=== PATIENT | female | born 1950 | race Caucasian/White ===

== ENCOUNTER 2022-04-15 10:17 | Outpatient (CLI) | payer MEDICARE, BC, SELFPAY ==
--- NOTE | 2022-04-15 10:45 | CRLHL7_ITS ---
For Patients: As a result of the Century Cures Act, medical imaging exams and procedure reports are released immediately into your electronic medical record. You may view this report before your referring provider. If you have questions, please contact your health care provider. BILATERAL MAMMOGRAM WITH COMPUTER-AIDED DETECTION TECHNIQUE: CC and MLO views were obtained. These mammographic images have been obtained using full-field digital technique. These mammographic images were interpreted with the benefit of computer-aided detection. COMPARISON FILM: 03/17/2017, 03/14/2016, 03/05/2015. FINDINGS: The breasts are heterogeneously dense, which may obscure small masses IMPRESSION: There is no radiographic evidence for malignancy. ASSESSMENT: BI-RADS Category 1: Negative RECOMMENDATION: Routine screening mammogram in 1 year. A lay language report of this examination will be provided to the patient. Calvin Montesinos M.D. Diagnostic Radiologist [email or web address] CARMINA/Dictated by: Calvin Montesinos MD @ 04/15/2022 11:05:00 AM (Electronically Signed)
== END 2022-04-15 10:18 | disposition home or self-care (01) ==
LOC: MAMMO 10:21
PROVIDERS: Visit Provider Emergency Medicine
DX: Z12.31 Encounter for screening mammogram for malignant neoplasm of breast (principal)
CPT/HCPCS: 77063; 77067

== ENCOUNTER 2023-03-26 12:56 | Outpatient (CLI) | payer MEDICARE, BC, SELFPAY | END 2023-03-26 12:57 | disposition home or self-care (01) | LOC: LKVREF 12:58 | PROVIDERS: Visit Provider Family Medicine | DX: M79.672 Pain in left foot (principal); M79.673 Pain in unspecified foot | CPT/HCPCS: 84550 ==

== ENCOUNTER 2023-04-08 14:26 | Outpatient (CLI) | payer MEDICARE, BC, SELFPAY ==
--- NOTE | 2023-04-08 15:00 | CRLHL7_ITS ---
For Patients: As a result of the Century Cures Act, medical imaging exams and procedure reports are released immediately into your electronic medical record. You may view this report before your referring provider. If you have questions, please contact your health care provider. DXA BONE MINERAL DENSITY STUDY Current height (in): 64.0. Weight (lb): 142.0. Menopause age: 46. Ethnicity: White. 1. Have you had a previous hip or vertebral fracture? No. 2. Have you had any fractures during your adult life which did not result from significant trauma (e.g., auto accident)? Yes. 3. Did either of your parents have a hip fracture? No. 4. Do you smoke? No. 5. Have you ever taken Glucocorticoids? No. 6. Do you have rheumatoid arthritis? No. 7. Do you have secondary osteoporosis? No. 8. Do you drink 3 or more alcoholic drinks per day? No. 9. Are you being treated for osteoporosis? No. 10. Have you ever taken any of the following medications: Actonel, Evista, Fosamax, Miacalcin, Reclast, Boniva, Forteo, HRT (i.e. estrogen/hormone therapy), Protelos, Prolia, Vitamin D, Calcium, other ??? please specify. ANSWER: Yes, Fosamax, calcium. 11. Do you have any of the following medical conditions: Anorexia or bulimia, asthma or emphysema, end stage renal disease, hyperparathyroidism, any seizure disorders, cancer, inflammatory bowel diseases, hysterectomy, other ??? please specify. ANSWER: Yes, cancer. 12. What was your maximum height (inches)? 64. 13. Do you perform weight bearing exercise regularly? Yes. 14. Do you regularly consume dairy products? Yes. 15. Do you drink caffeinated beverages? Yes. 16. At what age did your period start? 15. 17. Are you premenopausal? No. 18. How many full term pregnancies have you had? 2. 19. Have you ever missed your period for more than 6 months in a row (not including or menopause)? No. TECHNIQUE: Bone mineral density study was performed using the [employer]. FINDINGS: The results of the study expressed as bone mineral density (BMD) are as follows: Lumbar spine L1to L4: BMD: 1.254 g/cm2. T-score: 1.9. Z-score: 4.1. Neck Left: BMD: 0.816 g/cm2. T-score: -0.3. Z-score: 1.6. Right: BMD: 0.764 g/cm2. T-score: -0.8. Z-score: 1.1. Total Left: BMD: 0.958 g/cm2. T-score: 0.1. Z-score: 1.7. Right: BMD: 0.894 g/cm2. T-score: -0.4. Z-score: 1.2. Radius Left 33%: BMD: 0.573 g/cm2. T-score: -2.0. Z-score: 0.2. IMPRESSION: Normal bone density. *Comparison exams done prior to 03/2020 were performed on different unit, [employer]. COMPARISON: Compared with scan of 12/17/2017, the bone mineral density has decreased by 4.3 percent at the spine and increased by 6.0 percent at the hip. Compared with scan of 08/17/2014, the bone mineral density has increased by 7.2 percent at the spine and increased by 1.7 percent at the hip. Calvin Montesinos M.D. Diagnostic Radiologist [email or web address] SOO/gbarielle / be/Dictated by: Calvin Montesinos MD @ 04/08/2023 3:34:00 PM (Electronically Signed)
== END 2023-04-08 14:27 | disposition home or self-care (01) ==
LOC: RAD 14:27
PROVIDERS: PCP Emergency Medicine; Visit Provider Emergency Medicine
DX: M81.0 Age-related osteoporosis without current pathological fracture (principal)
CPT/HCPCS: 77080

== ENCOUNTER 2023-04-13 21:56 | Outpatient (REF) | payer MEDICARE, BC, SELFPAY ==
[2023-04-13 22:49] LABS: Aspartate Amino Transferase* 31 U/L (12-35); Creatinine* 0.7 mg/dL (0.5-1.5); Estimated Glomerular Filt Rate 92 ml/min
[2023-04-13 23:14] LABS: Basophils Absolute Auto 0.04 K/uL (0.00-0.30); Basophils Percent Auto 0.5 % (0.0-3.0); Eosinophils Absolute Auto 0.26 K/uL (0.00-0.50); Eosinophils Percent Auto 3.1 % (0.0-7.0); Hematocrit 40.1 % (33.0-51.0); Immature Granulocytes Abs Auto 0.11 K/uL (0.00-0.30); Immature Granulocytes Pct Auto 1.3 %; Lymphocytes Absolute Auto 1.79 K/uL (0.90-2.90); Lymphocytes Percent Auto 21.3 % (20-44); Mean Corpuscular HGB Conc 32 gm/dL (32-36); Mean Corpuscular Hemoglobin 30 pg (26-34); Mean Corpuscular Volume 94 fL (80-100); Monocytes Percent Auto 10.6 % (0.0-11.0); Neutrophils Percent Auto 63.2 % (42.0-72.0); Platelet Count* 201 K/uL (140-440); RDW Coefficient of Variation % 13.4 % (11.5-15.5); Red Blood Count 4.28 m/uL (4.00-5.20); White Blood Count* 8.39 K/uL (4.50-11.00)
[2023-04-13 23:49] LABS: Slide Review Reflex Yes
[2023-04-14 03:52] LABS: Slide Review Acceptable Review (Acceptable)
== END 2023-04-13 21:57 | disposition home or self-care (01) ==
LOC: NPINS 21:56
PROVIDERS: PCP Emergency Medicine; Visit Provider Physician Assistant
DX: M06.9 Rheumatoid arthritis, unspecified (principal)
CPT/HCPCS: 82565; 84450; 85025

== ENCOUNTER 2023-08-10 22:22 | Outpatient (REF) | payer MEDICARE, BC, SELFPAY ==
[2023-08-10 23:39] LABS: Basophils Percent Auto 0.9 % (0.0-3.0); Eosinophils Absolute Auto 0.28 K/uL (0.00-0.50); Eosinophils Percent Auto 2.6 % (0.0-7.0); Hematocrit 42.6 % (33.0-51.0); Hemoglobin* 13.9 gm/dL (12.0-16.0); Immature Granulocytes Abs Auto 0.05 K/uL (0.00-0.30); Immature Granulocytes Pct Auto 0.5 %; Lymphocytes Percent Auto 15.2 % (20-44); Mean Corpuscular HGB Conc 33 gm/dL (32-36); Mean Corpuscular Hemoglobin 31 pg (26-34); Mean Corpuscular Volume 95 fL (80-100); Monocytes Percent Auto 9.3 % (0.0-11.0); Neutrophils Percent Auto 71.5 % (42.0-72.0); Platelet Count* 202 K/uL (140-440); Red Blood Count 4.49 m/uL (4.00-5.20)
[2023-08-10 23:42] LABS: Aspartate Amino Transferase* 31 U/L (12-35); Creatinine* 0.7 mg/dL (0.5-1.5); Estimated Glomerular Filt Rate 92 ml/min; Slide Review Reflex No
== END 2023-08-10 22:23 | disposition home or self-care (01) ==
LOC: NPINS 22:22
PROVIDERS: PCP Emergency Medicine; Visit Provider Physician Assistant
DX: M06.9 Rheumatoid arthritis, unspecified (principal)
CPT/HCPCS: 82565; 84450; 85025

== ENCOUNTER 2024-06-07 13:36 | Outpatient (REF) | payer MEDICARE, BC, SELFPAY ==
[2024-06-07 14:12] LABS: Basophils Absolute Auto 0.04 K/uL (0.00-0.30); Basophils Percent Auto 0.4 % (0.0-3.0); Creatinine* 0.6 mg/dL (0.5-1.5); Eosinophils Absolute Auto 0.02 K/uL (0.00-0.50); Eosinophils Percent Auto 0.2 % (0.0-7.0); Estimated Glomerular Filt Rate 95 ml/min; Hematocrit 40.6 % (33.0-51.0); Hemoglobin* 13.2 gm/dL (12.0-16.0); Immature Granulocytes Abs Auto 0.04 K/uL (0.00-0.30); Immature Granulocytes Pct Auto 0.4 %; Lymphocytes Percent Auto 15.6 % (20-44); Mean Corpuscular HGB Conc 33 gm/dL (32-36); Mean Corpuscular Hemoglobin 31 pg (26-34); Mean Corpuscular Volume 95 fL (80-100); Monocytes Percent Auto 7.8 % (0.0-11.0); Neutrophils Percent Auto 75.6 % (42.0-72.0); Platelet Count* 180 K/uL (140-440); RDW Coefficient of Variation % 13.1 % (11.5-15.5); Red Blood Count 4.26 m/uL (4.00-5.20); White Blood Count* 10.39 K/uL (4.50-11.00)
[2024-06-07 14:13] LABS: Alanine Aminotransferase* 43 U/L (4-35); Aspartate Amino Transferase* 33 U/L (12-35)
[2024-06-07 14:26] LABS: Slide Review Reflex No
== END 2024-06-07 13:37 | disposition home or self-care (01) ==
LOC: NPINS 13:36
PROVIDERS: PCP Emergency Medicine; Visit Provider Nurse Practitioner
DX: M06.9 Rheumatoid arthritis, unspecified (principal)
CPT/HCPCS: 82565; 84450; 84460; 85025

== ENCOUNTER 2024-10-01 02:00 | Emergency (ER) | payer MEDICARE, BC, SELFPAY ==
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
[2024-10-01 02:16] VITALS: BP 169/88; PULSE 93; RESP 22; TEMP 37.7; O2SAT 92; BMI 24.9
--- NOTE | 2024-10-01 02:34 | CRLHL7_ITS ---
For Patients: As a result of the Century Cures Act, medical imaging exams and procedure reports are released immediately into your electronic medical record. You may view this report before your referring provider. If you have questions, please contact your health care provider. Indication: Cough Technique: Two views of the chest Comparison: Chest radiograph and CT performed 01/20/2017 Findings/Impression: Mild cardiomegaly with prominent interstitial markings suspicious for volume overload. Question new nodular opacities in the left lung base. Nonemergent outpatient chest CT recommended for further characterization. Dictated by Rambo Panda MD @ 10/01/2024 3:13:20 AM (Electronically Signed)
--- NOTE | 2024-10-01 02:40 | ED.GENADULT ---
HPI - General Adult General Chief complaint: Fever Stated complaint: bad cold, cough, fever Time Seen by Provider: 10/01/24 02:23 Source: patient and family Mode of arrival: ambulatory Limitations: no limitations History of Present Illness HPI narrative: 74-year-old female presents to a busy ED for cough in the wee hours. Cough constant, non productive. No severe shortness of breath, no chest pain. Low-grade fever. Recently traveled by car back from [place] with family that were ill with similar symptoms. Has not tried any treatments to help with symptoms. No vomiting, no loss of consciousness, no history of DVT or PE per her report. Is anticoagulated on Eliquis due to AFib. Past medical history notable for rheumatoid arthritis, on methotrexate, AFib. Meds reviewed do seem accurate as listed. ROS is notable for the respiratory symptoms as above only, otherwise denies times 12 systems. Nonsmoker. Related Data Home Medications ?Medication ?Instructions ?Recorded ?Confirmed antiarthritic combination no.2 900 See Rx Instructions PO .COMPLEX 05/29/22 10/01/24 mg tablet (glucosamine-chondroitin) ascorbate calcium (vitamin C) 500 1 g PO Q6H 05/29/22 10/01/24 mg tablet calcium carbonate 260 mg PO ONCE 05/29/22 10/01/24 folic acid 1 mg tablet 1 mg PO QDAY 05/29/22 10/01/24 methotrexate sodium 2.5 mg tablet 2.5 mg PO QWEEK 05/29/22 10/01/24 multivitamin 1 tab PO QAM 05/29/22 10/01/24 omega-3 fatty acids 1,000 mg 1,000 mg PO QDAY 05/29/22 10/01/24 capsule prednisone 1 mg tablet 4 mg PO QDAY 07/14/24 10/01/24 Previous Rx's ?Medication ?Instructions ?Recorded apixaban 5 mg tablet 5 mg PO BID #180 tabs 02/02/24 carvedilol 25 mg tablet 25 mg PO BID #180 tabs 05/25/24 amitriptyline 25 mg tablet 25 mg PO QHS #90 tabs 08/16/24 rosuvastatin 20 mg tablet 20 mg PO QDAY #90 tabs 08/16/24 albuterol sulfate 90 mcg/actuation 2 inh inhalation Q4-6H PRN #1 ea 10/01/24 breath activated powder inhaler azithromycin 250 mg tablet See Rx Instructions PO .COMPLEX #6 10/01/24 tabs inhalational spacing device (Kvng #1 ea 10/01/24 Aerosol Hickman Enhancer spacer) prednisone 20 mg tablet 20 mg PO DAILY 3 days #3 tabs 10/01/24 Allergies Allergy/AdvReac Type Severity Reaction Status Date / Time aspirin AdvReac Abdominal Verified 09/22/24 14:04 Pain PFSH PFSH Medical History Stress fx femoral neck ?M84.353A - Stress fracture, unspecified femur, initial encounter for fracture (ICD-10) Metatarsal stress fracture of left foot ?M84.375A - Stress fracture, left foot, initial encounter for fracture (ICD-10) History of stroke (2005) ?Z86.73 - Personal history of transient ischemic attack (TIA), and cerebral infarction without residual deficits (ICD-10) History of CT scan of chest ?Z92.89 - Personal history of other medical treatment (ICD-10) Foot pain, left ?M79.672 - Pain in left foot (ICD-10) Foot pain ?M79.673 - Pain in unspecified foot (ICD-10) Surgical History History of lumbar discectomy (1996) ?Z98.890 - Other specified postprocedural states (ICD-10) History of lobectomy of lung (2013) ?Z90.2 - Acquired absence of lung [part of] (ICD-10) History of arthroscopy of both shoulders (2002) ?Z98.890 - Other specified postprocedural states (ICD-10) Family History Father Asthma Rheumatoid arteritis Mother CHF (congestive heart failure) Diabetes Stroke, Onset Age: 70 Social History Narrative: 2007, 2 adults sons, Works at [employer] Non-smoker quit 2013 , 35 pack years Rarely consumes alcohol 1-2 month Exercises regularly walks 35-40 min x3/ week Smoking Status: Former smoker Do you use any of these nicotine containing products: None Second hand tobacco smoke exposure: No How often do you have a drink containing alcohol: never AUDIT-C Alcohol total score: 0 Non-prescribed substance use: denies use service: No Exam Const: Vital Signs, click to edit/add: Vital Signs - 24 hr 10/01/24 02:16 Temperature 99.9 F H Pulse Rate [Left P ulse Oximeter] 93 Respiratory Rate 22 Blood Pressure [Ri ght Upper Arm] 169/88 H Pulse Oximetry 92 Oxygen Delivery Me thod Room Air Documenting provider has reviewed patient's vital signs: yes Common normals: no apparent distress Other: Mild memory impairment, reports chronic. Able to answer medical questions appropriately. Appears well nourished and well hydrated. HENMT: Common normals: normocephalic, moist oral mucous membranes and oropharynx normal Head and scalp: normocephalic Other: Mild clear mucus rhinorrhea. Eye: Common normals: conjunctivae normal General eye: normal appearance of both eyes Conjunctiva: conjunctiva(e) normal Neck & C-Spine: Common normals: full ROM and no lymphadenopathy Resp: Common normals: normal respiratory effort and no use of accessory muscles Effort & inspection: able to speak in complete sentences Other: Faint expiratory wheeze left midlung echeverria. Cardio: Common normals: regular rate, regular rhythm, S1 normal heart sound, S2 normal heart sound and no murmurs Rate: regular rate Rhythm: regular rhythm Heart sounds: S1 normal and S2 normal Extremity: Common normals: normal capillary refill and no pedal edema Psych: Attitude: calm Activity/motor behavior: appropriate eye contact Insight: fair Judgement: fair Skin: Common normals: no rashes or lesions noted General skin exam: no rashes or lesions noted Course Course ED Course: 74-year-old female who immune compromise presenting with cough, low-grade fever. Differential diagnosis including most likely viral illness that she acquired from family on this recent trip, cannot exclude pneumonia, pertussis, heart failure, multiple viral illness these, amongst others. Will collect viral swabs, administer DuoNeb, chest x-ray. Await findings. Reevaluation(s) Time of Reevaluation #1: 03:31 Reevaluation #1: Counseled patient on chest x-ray and lab findings. Negative viral swabs, chest x-ray reassuring. Suspect bronchitis. She is immunocompromised due to her rheumatoid arthritis and use of methotrexate. Because of this, will treat with azithromycin and prednisone. She did have some improvement with the DuoNeb and is now coughing up some mucus. Will also prescribe albuterol to use p.r.n.. Counseled that the pills that are prescribed will start tomorrow. The once that she was given in the ED will count as her Thursday morning dose. 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 They asked about sleep aids, I do not think this is a very good idea. She may use [id number] Benadryl and or melatonin to help with sleep as needed. Indications for ED referral were reviewed, written instructions provided. Primary care follow-up if not improving in 1 weeks time. Vital Signs Vital signs: Initial Vital Signs Temperature 99.9 F H 10/01/24 02:16 Temperature Source Temporal Artery Scan 10/01/24 02:16 Pulse Rate 93 10/01/24 02:16 Respiratory Rate 22 10/01/24 02:16 Blood Pressure 169/88 H 10/01/24 02:16 Blood Pressure Mean 115 H 10/01/24 02:16 Blood Pressure Position High-Fowlers 10/01/24 02:16 Pulse Oximetry 92 10/01/24 02:16 Oxygen Delivery Method Room Air 10/01/24 02:16 Vital Signs Temperature 99.9 F H 10/01/24 02:16 Pulse Rate 93 10/01/24 02:16 Respiratory Rate 22 10/01/24 02:16 Blood Pressure 169/88 H 10/01/24 02:16 Pulse Oximetry 92 10/01/24 02:16 Oxygen Delivery Method Room Air 10/01/24 02:16 Temperature 99.9 F H 10/01/24 02:16 Pulse Rate 93 10/01/24 02:16 Respiratory Rate 22 10/01/24 02:16 Blood Pressure 169/88 H 10/01/24 02:16 Pulse Oximetry 92 10/01/24 02:16 Oxygen Delivery Method Room Air 10/01/24 02:16 Medications Administered Medications: Generic Name Dose Route Start Last Admin Trade Name Freq PRN Reason Stop Dose Admin Albuterol/Ipratropium 1 neb 10/01/24 02:34 10/01/24 02:49 Iprat-Albut 0.5-2.5 Mg/3 Ml Neb IH 10/01/24 02:35 1 neb ONCE ONE Administration Medical Decision Making Lab Data Lab results reviewed: Yes I reviewed the patient's lab results Labs: Lab Results 10/01/24 10/01/24 Range/Units 02:12 02:24 SARS-CoV-2 (PCR) Negative SARS-CoV-2 (Negative) Influenza Type A (PCR) Negative PCR FLU A (Negative) Influenza Type B (PCR) Negative PCR FLU B (Negative) Lab Acknowledgement Test Added Imaging Data Chest x-ray: Attestation: I have reviewed the pertinent imaging results. My impression: Normal chest x-ray Radiologist's impression: Findings/Impression: Mild cardiomegaly with prominent interstitial markings suspicious for volume overload. Question new nodular opacities in the left lung base. Nonemergent outpatient chest CT recommended for further characterization. Dictated by Rambo Panda MD @ 10/01/2024 3:13:20 AM Discharge Plan Discharge Clinical Impression: Bronchitis Patient Disposition: Home w/ Parent or Adult Condition: Stable Instructions: Acute Bronchitis (ED) Additional Instructions: As we discussed, your swabs were negative for COVID, influenza. We will send out testing for pertussis. The antibiotic that your prescribed would cover for this anyway. Most likely, this is a viral bronchitis but because you are immunocompromised, you are at higher risk of complications. The breathing treatment that I gave you will help you cough up some of this cried. There are no signs of low oxygen, severe pneumonia or any emergent condition today. The antibiotic and prednisone that you have already had in the ED will count as your Thursday dose. 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 Take these as prescribed. He will have 3 more days of prednisone and 5 more days of antibiotic. It is normal to cough for a couple of weeks after you have finished the antibiotics. You may continue using the inhaler to help with this in the meantime. If things are not starting to improve in a week, I recommend primary care follow-up. You should come to the emergency department if you have severe shortness of breath, significant chest pain and or other signs of severe complication. It is okay to use [id number] Benadryl and or melatonin to help with sleep. Activity Level: Activity as Tolerated Discharge Diet: Regular Prescriptions: New azithromycin 250 mg tablet See Rx Instructions .ROUTE .COMPLEX Qty: 6 0RF Rx Instructions: For 250 mg dose pack: take 500 mg today (day 1), then 250 mg for 4 days (days 2-5) prednisone 20 mg tablet 20 mg PO DAILY 3 Days Qty: 3 0RF albuterol sulfate 90 mcg/actuation aerosol powdr breath activated 2 inh inhalation Q4-6H PRNQty: 1 1RF (DME) Kvng Aerosol Hickman Enhancer Spacer See Rx Instructions .Route Qty: 1 0RF Rx Instructions: As directed No Action prednisone 1 mg tablet 4 mg PO QDAY methotrexate sodium 2.5 mg tablet 2.5 mg PO QWEEK folic acid 1 mg tablet 1 mg PO QDAY multivitamin Tablet 1 tab PO QAM omega-3 fatty acids 1,000 mg capsule 1,000 mg PO QDAY calcium carbonate 260 mg calcium (648 mg) tablet 260 mg PO ONCE glucosamine-chondroitin 900 mg tablet See Rx Instructions PO .COMPLEX Rx Instructions: take as prescribed orally; ascorbate calcium (vitamin C) 500 mg tablet 1 g PO Q6H apixaban 5 mg tablet 5 mg PO BID Qty: 180 2RF carvedilol 25 mg tablet 25 mg PO BID Qty: 180 3RF Rx Instructions: must administer with a meal/food rosuvastatin 20 mg tablet 20 mg PO QDAY Qty: 90 3RF amitriptyline 25 mg tablet 25 mg PO QHS Qty: 90 3RF Follow Up/Referrals: Malini Campos MISSILEMAN [Primary Care Provider] - Stand Alone Forms: MyHealth Info Instructions
[2024-10-01] MEDS: IPRAT-ALBUT 0.5-2.5 MG/3 ML NEB 1 NEB IH (02:49)
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
[2024-10-01 03:11] LABS: PCR FLU A Negative PCR FLU A (Negative); PCR FLU B Negative PCR FLU B (Negative); SARS PCR* Negative SARS-CoV-2 (Negative)
[2024-10-01] MEDS: predniSONE 10 MG TABLET 20 MG PO (03:37)
[2024-10-01] MEDS: AZITHROMYCIN 250 MG TABLET 500 MG PO (03:37)
[2024-10-04 06:39] LABS: B. pertussis/parapertus Source Not Provided; Bordetella parapertussis PCR Not Detected; Bordetella pertussis by PCR Not Detected
== END 2024-10-01 03:47 | disposition home or self-care (01) ==
PROVIDERS: Emergency Provider Family Medicine; PCP Nurse Practitioner Family
DX: J40 Bronchitis, not specified as acute or chronic (principal)
CPT/HCPCS: 36415; 71046; 87631; 99284; A9270; J7512

== ENCOUNTER 2024-10-06 12:57 | Outpatient (CLI) | payer MEDICARE, BC, SELFPAY ==
--- OUTSIDE RECORDS SUMMARY | 2024-09-29 12:14 | XMS_ITS | Continuity of Care Document ---
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 Keep all follow-up visits as told by your health care provider. This includes visits for any further testing if your chest pain does not go away. This information is not intended to replace advice given to you by your health care provider. Make sure you discuss any questions you have with your health care provider. Document Revised: 12/05/2021 Document Reviewed: 12/05/2021 [employer] Patient Education 2022 [employer] Valuables and Belongings Clothes at Bedside: Pants, Shirt, Shoes Electronics at Bedside: None Jewelry at Bedside: None Miscellaneous Items at Bedside: None Personal Devices at Bedside: None I understand that [facility] is not responsible for any personal belongings/effects or valuables that have not been identified on the valuables and belongings list. Any personal effects brought into the facility and not recorded on the valuables and belongings form are the responsibility of the patient/family/significant other. I have received the indicated patient education materials/instructions and medication list and have verbalized understanding. Patient Name: BRIDNA COLLINS Patient/Responsible Adult Signature: Date/Time: ____ Provider Signature: ____ Date/Time: ____ 12/09/2023 [facility] Physician Emergency department Note Patient: BRINDA COLLINS Age: 73 years Sex: F : 1950 Active Insurance: Admitting MD: Location: [facility] ED: ED05: 01 PCP: PCP, Unknown Author: Claudio Bach PA-C Date/Time Admit Date: 12/08/23 13:48 Provider Contact Time: 12/08/2023 13:56 Mode of Arrival Mode of Arrival: Wheelchair Chief Complaint Chief Complaint ED:Pt arrived POV from home c/o of chest pressure for approx 1hr resolved now 12/08/23 13:50 No results found. History of Present Illness This is a 73-year-old female presents for evaluation withanterior chest painthat followed her bra linethat started a few hours agoand only lasted about an hour. Patient reports she was making cookies at the time, and attempted to ignore it, butshe was concernedafter googling it, andwanted toget it checked out. Patient reports a history ofpericarditis in the past, and a history of paroxysmal atrial fibrillation, on Eliquis. Patient has never experienced any heart attack in the past. Patient has a history of RA and she attributes most of her musculoskeletal painto her RA. Patient denies any shortness of breath,anylightheadedness, or dizziness, and currently isasymptomatic. Health Status Status N/A Physical Exam First Vitals Signs Blood Pressure: 133 / 96(12/08/23 13:50) Heart Rate: 63(12/08/23 13:50) Respiratory Rate: 18(12/08/23 13:50) SPO2: 97%(12/08/23 13:50) Oxygen Method: Room air(12/08/23 13:50) Temperature Temporal Artery 36.7(12/08/23 13:50) General: Alert. Skin: Warm, dry. Head: Normocephalic. Neck: normal in appearance. Eye: Pupils are equal, round and reactive to light. Ears, nose, mouth and throat: Oral mucosa moist. Cardiovascular: Regular rate and rhythm, No murmur. No pretibial pitting edema Respiratory: Lungs are clear to auscultation, respirations are non-labored, breath sounds are equal. Chest wall:Non-tender to palpation Musculoskeletal: Moves all extremities. Most Recent Vitals T:36.7 C (Temporal Artery) HR:63 RR:18 BP:133/96 SpO2:97% Oxygen Method:Room air WT:140lbs WT:63.492kg Emergency Department Orders Laboratory and Blood: CBC w/Diff* (man diff if indicated) (CBC w/Diff* (man diff if indicated)) Troponin-I (Troponin-I) D-Dimer Quantitative (D-Dimer Quantitative) Comprehensive Metabolic Panel (CMP (BMP + ALB, Tot Prot, Bili, CA, Alk Phos, ALT, AST)) TSH w/FT4 Reflex (TSH w/FT4 Reflex) Radiology: XR Chest 1 View Portable (Chest XR Port 1 View) Diagnostic Tests: Electrocardiogram (EKG) Laboratory Results ED Labs (last two resulted values within 24 hours) Hematology WBC: 8.8 Hemoglobin: 13.8 Hematocrit: 40.6 Platelets: 192 Neutrophils: 74.9 MCV: 92.5 Lymph%: 13.6 Chemistry Sodium: 142 Potassium: 4.1 Chloride: 105 CO2: 26 Anion Gap: 11 Glucose: 180 (H) BUN: 14 Creatinine: 0.80 Calcium: 9.7 Total Bilirubin: 1.1 ALT: 31 AST: 23 Alk Phos: 73 TSH: 1.62 Cardiac Troponin I: <0.01 Coagulation D-Dimer, Quant: 5.50 (H) Diagnostic Results/Interpretation Radiology Result Date: 12/08/23 17:05 Verified By: Ramírez Johnston MD at 12/08/23 17:38 Report : CT Angio Chest PE Study IMPRESSION: 1. Negative for pulmonary embolism. 2. Cardiomegaly. 3. Coronary arterial calcifications. 4. Atherosclerosis thoracic aorta. 5. Chronic biapical scarring with previous pulmonary surgery to be correlated with surgical history. 6. Probable bronchocele in the left lower lobe. Incidental sub cm pulmonary nodules versus focal bronchial opacification right upper lobe. For patients at low risk (minimal or absent history of smoking and of other known risk factors), no routine follow-up is indicated. For patients at high risk (history of smoking or of other known risk factors), consider optional CT Chest at 12 months. (Reference: [place]) REFERENCES: Sarahhoifrah H, et al. Guidelines for Management of Incidental Pulmonary Nodules Detected on CT Images: From the Fleischner Society 2017. Radiology. 2017;284(1):228-243. 12/08/23 16:56 +++++++++++++++++++++++++++++++ ++++++++++++++++++++++++ Result Date: 12/08/23 14:37 Verified By: Filipe Wilkins MD at 12/08/23 14:47 Report : XR Chest 1 View Portable IMPRESSION: No acute cardiopulmonary process detected. 12/08/23 14:26 +++++++++++++++++++++++++++++++ ++++++++++++++++++++++++ Reexamination/Reevaluation 12/08/2023 17:53:28 - I discussed lab and imaging results with patient and plan for discharge home. All questions answered. Medical Decision Making Differential Diagnosis:Musculoskeletal pain, noncardiac chest pain,pulmonary embolism, pneumonia Comorbidities:Paroxysmal atrial fibrillation,TIA Studies Independently Interpreted:Chest x-ray images personally viewed interpreted by myself, no acute infiltrates, no cardiomegaly. CTchest angio images personally viewed and interpreted by myself, no acute pulmonary embolism. EKG:Time: 13: 54 ventricular rate 58 bpmsinus bradycardia with aright bundle branch block, no ST segment changes, T wave inversions or any signs of acute ischemia. Reviewed and interpreted by myself and Dr. Peng. Studies ordered/considered:CBC, CMP, troponin, D-dimer ED course:[facility] wall[facility]inthat came and wentearlier today, symptoms lastedabout an hour. Patient did not experience anylightheadedness, dizziness,or shortness of breath with the pain. Patient has no history of ischemic cardiomyopathy, andhas never experienced a heart attack. Patient had a cardiac workup, including a negativetroponin, her D-dimer was indeterminate, CT angio chest was performed that shows no acute pulmonary emboli or acute infiltrate.Patient has a history of RA, and attributes most of hermusculoskeletal pain to her RA, I suspect the patient's symptomsmay be musculoskeletal in nature, do not suspect cardiaccauses of pain at this time. However, I did let the patient know that [facility] unable to perform acomplete cardiac workup, and recommend close follow-up with cardiology. Patient has a heart score of 3, and I feel she is safe for outpatientmanagement if symptoms get worse or return patient was instructed return to EDfor evaluation. Final Diagnosis Diagnosis this visit: Non-cardiac chest pain (R07.89) 12/08/2023 17:54 Discharge Disposition Discharge Order Details: 12/08/23 17:55:00 [facility], Now, Home or self care Follow-up Follow-Up Details: Provider/Org Name: Rosa Mendez MD Within: 5 to 7 days Address: [address] [place] [address] [address] [facility] [id number]; ; Comments: Cardiology Problem List/Past Medical History Ongoing CVA (cerebral vascular accident) Hyperlipemia RA (rheumatoid arthritis) Historical No qualifying data Allergies NKA Social History Alcohol Current, 11/26/2023 Home/Environment Sikhism restrictions/concerns: None. Living situation: Home/Independent., 11/26/2023 Substance Abuse Denies, 11/26/2023 Tobacco Never (less than 100 in lifetime), 11/26/2023 Home Medications amitriptyline 25 mg oral tablet carvedilol 25 mg oral tablet Eliquis 5 mg oral tablet, 5 mg= 1 Tab, PO, BID folic acid 1 mg oral tablet methotrexate 2.5 mg oral tablet predniSONE 1 mg oral tablet, Take 4 tablets (4 mg total) by mouth daily.* rosuvastatin 20 mg oral tablet, 20 mg= 1 Tab, PO, qDay Electronically Signed By: Claudio Bach PA-C On 12/08/23 18:08 Co Signature By: Luis A Peng MD On 12/09/23 09:33 Modify Signature By: Claudio Bach PA-C On 12/08/23 17:57 12/09/2023 [facility] ED Physician Notes Patient: DM COLLINS Age: 73 years Sex: F : 1950 Active Insurance: MEDICARE A Admitting MD: Location: [facility] ED: ED05: 01 PCP: Author: Luis A Peng MD I have seen the patient with the associated SERGIO and the plan was discussed with me, and have completed my own complaint focused exam in entirety in addition to the detailed SERGIO examination. Vital signs reviewed General appearance: Nontoxic appearing Head: Normocephalic/atraumatic. Respiratory: Normal rate and effort. Equal chest rise bilaterally Cardiovascular: Extremities well-perfused, hemodynamically stable Abdomen: Soft, nontender, nondistended, negative Cabrales sign Musculoskeletal: No deformity. Skin: normal color, no laceration Neurological: Alert and oriented 73-year-old female with history of RA, A-fib on Eliquis, presenting with transient pain across the right lower anterior ribs which resolved prior to arrival. Denies a prior history, no modifying factors during the episode, no pleuritic symptoms. EKG shows a right bundle branch block. She has a benign abdominal exam, no right upper quadrant tenderness. We are performing a cardiac workup, will include D-dimer, chest x-ray See PA note for results, reassessment and final disposition Electronically Signed By: Luis A Peng MD On 12/08/23 15:46 Co Signature By: Modify Signature By: Luis A Peng MD On 12/08/23 15:46 12/08/2023 [facility] ED Physician Notes Patient: DM COLLINS Age: 73 years Sex: F : 1950 Active Insurance: Admitting MD: Location: [facility] ED: ED05: 01 PCP: PCP, Unknown Author: Claudio Bach PA-C Date/Time Admit Date: 12/08/23 13:48 Provider Contact Time: 12/08/2023 13:56 Mode of Arrival Mode of Arrival: Wheelchair Chief Complaint Chief Complaint ED: Pt arrived POV from home c/o of chest pressure for approx 1hr resolved now 12/08/23 13:50 No results found. History of Present Illness This is a 73-year-old female presents for evaluation with anterior chest pain that followed her bra line that started a few hours ago and only lasted about an hour. Patient reports she was making cookies at the time, and attempted to ignore it, but she was concerned after googling it, and wanted to 'get it checked out'. Patient reports a history of pericarditis in the past, and a history of paroxysmal atrial fibrillation, on Eliquis. Patient has never experienced any heart attack in the past. Patient has a history of RA and she attributes most of her musculoskeletal pain to her RA. Patient denies any shortness of breath, any lightheadedness, or dizziness, and currently is asymptomatic. Health Status Status N/A Physical Exam First Vitals Signs Blood Pressure: 133 / 96 (12/08/23 13:50) Heart Rate: 63 (12/08/23 13:50) Respiratory Rate: 18 (12/08/23 13:50) SPO2: 97% (12/08/23 13:50) Oxygen Method: Room air (12/08/23 13:50) Temperature Temporal Artery 36.7 (12/08/23 13:50) General: Alert. Skin: Warm, dry. Head: Normocephalic. Neck: normal in appearance. Eye: Pupils are equal, round and reactive to light. Ears, nose, mouth and throat: Oral mucosa moist. Cardiovascular: Regular rate and rhythm, No murmur. No pretibial pitting edema Respiratory: Lungs are clear to auscultation, respirations are non-labored, breath sounds are equal. Chest wall: Non-tender to palpation Musculoskeletal: Moves all extremities. Most Recent Vitals T: 36.7 C (Temporal Artery) HR: 63 RR: 18 BP: 133/96 SpO2: 97% Oxygen Method: Room air WT: 140 lbs WT: 63.492 kg Emergency Department Orders Laboratory and Blood: CBC w/Diff* (man diff if indicated) (CBC w/Diff* (man diff if indicated)) Troponin-I (Troponin-I) D-Dimer Quantitative (D-Dimer Quantitative) Comprehensive Metabolic Panel (CMP (BMP + ALB, Tot Prot, Bili, CA, Alk Phos, ALT, AST)) TSH w/FT4 Reflex (TSH w/FT4 Reflex) Radiology: XR Chest 1 View Portable (Chest XR Port 1 View) Diagnostic Tests: Electrocardiogram (EKG) Laboratory Results ED Labs (last two resulted values within 24 hours) Hematology WBC: 8.8 Hemoglobin: 13.8 Hematocrit: 40.6 Platelets: 192 Neutrophils: 74.9 MCV: 92.5 Lymph%: 13.6 Chemistry Sodium: 142 Potassium: 4.1 Chloride: 105 CO2: 26 Anion Gap: 11 Glucose: 180 (H) BUN: 14 Creatinine: 0.80 Calcium: 9.7 Total Bilirubin: 1.1 ALT: 31 AST: 23 Alk Phos: 73 TSH: 1.62 Cardiac Troponin I: <0.01 Coagulation D-Dimer, Quant: 5.50 (H) Diagnostic Results/Interpretation Radiology Result Date: 12/08/23 17:05 Verified By: Ramírez Johnston MD at 12/08/23 17:38 Report : CT Angio Chest PE Study IMPRESSION: 1. Negative for pulmonary embolism. 2. Cardiomegaly. 3. Coronary arterial calcifications. 4. Atherosclerosis thoracic aorta. 5. Chronic biapical scarring with previous pulmonary surgery to be correlated with surgical history. 6. Probable bronchocele in the left lower lobe. Incidental sub cm pulmonary nodules versus focal bronchial opacification right upper lobe. For patients at low risk (minimal or absent history of smoking and of other known risk factors), no routine follow-up is indicated. For patients at high risk (history of smoking or of other known risk factors), consider optional CT Chest at 12 months. (Reference: Winston) REFERENCES: [place] Meng, et al. Guidelines for Management of Incidental Pulmonary Nodules Detected on CT Images: From the Fleischner Society 2017. Radiology. 2017;284(1):228-243. 12/08/23 16:56 +++++++++++++++++++++++++++++++ ++++++++++++++++++++++++ Result Date: 12/08/23 14:37 Verified By: Filipe Wilkins MD at 12/08/23 14:47 Report : XR Chest 1 View Portable IMPRESSION: No acute cardiopulmonary process detected. 12/08/23 14:26 +++++++++++++++++++++++++++++++ ++++++++++++++++++++++++ Reexamination/Reevaluation 12/08/2023 17:53:28 - I discussed lab and imaging results with patient and plan for discharge home. All questions answered. Medical Decision Making Differential Diagnosis: Musculoskeletal pain, noncardiac chest pain, pulmonary embolism, pneumonia Comorbidities: Paroxysmal atrial fibrillation, TIA Studies Independently Interpreted: Chest x-ray images personally viewed interpreted by myself, no acute infiltrates, no cardiomegaly. CT chest angio images personally viewed and interpreted by myself, no acute pulmonary embolism. EKG: Time: 13: 54 ventricular rate 58 bpm sinus bradycardia with a right bundle branch block, no ST segment changes, T wave inversions or any signs of acute ischemia. Reviewed and interpreted by myself and Dr. Peng. Studies ordered/considered: CBC, CMP, troponin, D-dimer ED course: Patient presents for evaluation with lower chest wall pain that came and went earlier today, symptoms lasted about an hour. Patient did not experience any lightheadedness, dizziness, or shortness of breath with the pain. Patient has no history of ischemic cardiomyopathy, and has never experienced a heart attack. Patient had a cardiac workup, including a negative troponin, her D-dimer was indeterminate, CT angio chest was performed that shows no acute pulmonary emboli or acute infiltrate. Patient has a history of RA, and attributes most of her musculoskeletal pain to her RA, I suspect the patient's symptoms may be musculoskeletal in nature, do not suspect cardiac causes of pain at this time. However, I did let the patient know that I am unable to perform a complete cardiac workup, and recommend close follow-up with cardiology. Patient has a heart score of 3, and I feel she is safe for outpatient management if symptoms get worse or return patient was instructed return to ED for evaluation. Final Diagnosis Diagnosis this visit: Non-cardiac chest pain (R07.89) 12/08/2023 17:54 Discharge Disposition Discharge Order Details: 12/08/23 17:55:00 [facility], Now, Home or self care Follow-up Follow-Up Details: Provider/Org Name: Rosa Mendez MD Within: 5 to 7 days Address: [address] [place] [address] [address] [facility] [address]; ; Comments: Cardiology Problem List/Past Medical History Ongoing CVA (cerebral vascular accident) Hyperlipemia RA (rheumatoid arthritis) Historical No qualifying data Allergies NKA Social History Alcohol Current, 11/26/2023 Home/Environment Sikhism restrictions/concerns: None. Living situation: Home/Independent., 11/26/2023 Substance Abuse Denies, 11/26/2023 Tobacco Never (less than 100 in lifetime), 11/26/2023 Home Medications amitriptyline 25 mg oral tablet carvedilol 25 mg oral tablet Eliquis 5 mg oral tablet, 5 mg= 1 Tab, PO, BID folic acid 1 mg oral tablet methotrexate 2.5 mg oral tablet predniSONE 1 mg oral tablet, Take 4 tablets (4 mg total) by mouth daily.* rosuvastatin 20 mg oral tablet, 20 mg= 1 Tab, PO, qDay Electronically Signed By: Claudio Bach PA-C On 12/08/23 18:08 Co Signature By: Luis A Peng MD On 12/09/23 09:33 Modify Signature By: Claudio Bach PA-C On 12/08/23 17:57 12/08/2023 [facility] Physician Emergency department Note Patient: BRINDA COLLINS Age: 73 years Sex: F : 1950 Active Insurance: MEDICARE A Admitting MD: Location: [facility] ED: ED05: 01 PCP: Author: Luis A Peng MD I have seen the patient with the associated SERGIO and the plan was discussed with me, and have completed my own complaint focused exam in entirety in addition to the detailed SERGIO examination. Vital signs reviewed General appearance: Nontoxic appearing Head: Normocephalic/atraumatic. Respiratory: Normal rate and effort. Equal chest rise bilaterally Cardiovascular: Extremities well-perfused, hemodynamically stable Abdomen: Soft, nontender, nondistended, negative Cabrales sign Musculoskeletal: No deformity. Skin: normal color, no laceration Neurological: Alert and oriented 73-year-old female with history of RA, A-fib on Eliquis, presenting with transient pain across the right lower anterior ribs which resolved prior to arrival. Denies a prior history, no modifying factors during the episode, no pleuritic symptoms. EKG shows a right bundle branch block. She has a benign abdominal exam, no right upper quadrant tenderness. We are performing a cardiac workup, will include D-dimer, chest x-ray See PA note for results, reassessment and final disposition Electronically Signed By: Luis A Peng MD On 12/08/23 15:46 Co Signature By: Modify Signature By: Luis A Peng MD On 12/08/23 15:46 12/08/2023 [facility] Discharge Instructions Document [address] [address] BRINDA COLLINS :1950 (EV) Visit Date:11/26/2023 [employer]AF[employer]IC[employer] PRESCRIBING We care about you. Our goal is to treat your medical conditions, including pain, effectively, safely and in the right way. Pain relief treatment can be complicated. Mistakes or abuse of pain medicine can cause serious health problems and . Our emergency department will only provide pain relief options that are safe and correct. For your SAFETY, we routinely follow these rules when helping you with your pain. We look for and treat emergencies. We use our best judgement when treating pain. These recommendations follow legal and ethical advice. You should have only ONE provider and ONE pharmacy helping you with pain. We do not usually prescribe pain medication if you already receive pain medicine from another health care provider. If pain prescriptions are needed for pain, we will only give you a limited amount. We do not refill stolen or lost prescriptions for pain medication. We do not prescribe long-acting pain medicines such as: OxyContin, MSContin, Fentanyl (Duragesic), Methadone, Opana ER, Exalgo, and others. We do not provide missed doses of Methadone. We do not usually give shots for flare-ups of chronic pain. Health care laws, including HIPAA, allow us to ask for all of your medical records. These laws allow us to share information with other health providers who are treating you. We may ask you to show a photo ID when you receive a prescription for pain medicines. In [place], we use the [place] Prescription Drug Monitoring Program called [employer]. In [place] and [place], we use the Prescription Monitoring Program that has oversight by the [place] and [facility] boards of pharmacy. These statewide computer systems track opioid pain medications and other controlled substance prescriptions. If you need help with substance abuse or addiction, please call [phone] ([phone] for confidential referral and treatment. Sponsored by: [employer] [facility] [employer] Safe Practice, Safe Care [facility] Emergency Department Patient Discharge Instructions If your symptoms continue or worsen, return to the emergency department or contact your physician. If you have questions about your discharge instructions, call the phone number above. Providers Attending Physician - Scott Lynne MD Lifetime Physician(PCP) - PCP, Unknown Provider Role Yael Lomeli ED Provider Scott Lynne MD ED Provider Reason for Visit Laceration of thumb Discharge Diagnosis Discharge Vitals T: 36.7 C (Tympanic) HR: 68 RR: 18 BP: 150/49 SpO2: 95% Oxygen Method: Room air HT: 162.56 cm WT: 66.6 kg BMI: 25.203 BSA: 1.73 Time patient left the ED 11/26/2023 07:08 pm These instructions are intended to provide general information and guidelines to follow at home to properly care for your particular medical problem. The following diagnostic tests and/or procedures were performed during your stay. Tests Performed Most Recent Lab Results Follow-up Instructions: All referrals for follow up medical care may require approval by your insurance carrier. Any provider contact information (below) is provided to assist you in getting the follow up we recommend. However, it's important that you first check with your insurance provider to assure that the provider is in yourinsurance provider to assure that the provider is in your network and such a visit will be covered. Some plans may require a Primary Care doctor to provide a referral for specialist appointments. You May Need to Schedule the Following Appointments Follow Up with Follow up with primary care provider When Within 1 to 2 days We encourage you to sign up for My Portal, where you can easily access your medical records and test results from all [facility]. Please sign up in one of the following ways: 1. Email invitation. You may have a message in your inbox. Please click the link provided to create an account. OR 2. Request an invitation at your next clinic or hospital visit. Please ask a staff member and they will be happy to assist you. Medications DO NOT STOP TAKING ANY MEDICATIONS WITHOUT CONTACTING YOUR PHYSICIAN Discharge Orders Discharge Orders: Discharge Now, Home or self care Education Materials Skin Tear A skin tear is a wound in which the top layers of skin have peeled off from the deeper skin or tissues underneath. This is a common problem as people get older because the skin becomes thinner and more fragile. In addition, some medicines, such as oral corticosteroids, can lead to thinning skin if they are taken for long periods of time. A skin tear is often repaired with tape or skin adhesive strips. Depending on the location of the wound, a bandage (dressing) may be applied over the tape or adhesive strips. Follow these instructions at home: Wound care Clean the wound as told by your health care provider. You may be instructed to keep the wound dry for the first few days. If you are told to clean the wound: Wash the wound as told by your health care provider. This may include using mild soap and water, a wound cleanser, or a salt w ater (saline) solution. If using soap, rinse the wound with water to remove all soap. Do not rub the wound dry. Pat it gently with a clean towel or let it air-dry. Change any dressings as told by your health care provider. This may include changing the dressing if it gets wet, gets dirty, or starts to smell bad. Wash your hands with soap and water for at least 20 seconds before and after you change your bandage (dressing). If soap and water are not available, use hand manager operations research. Leave tape or skin adhesive strips in place. These skin closures may need to stay in place for 2 weeks or longer. If adhesive strip edges start to loosen and curl up, you may trim the loose edges. Do not remove adhesive strips completely unless your health care provider tells you to do that. Check your wound every day for signs of infection. Check for: Redness, swelling, or pain. More fluid or blood. Warmth. Pus or a bad smell. Do not scratch or pick at the wound. Protect the injured area until it has healed. Medicines Take or apply [id number]-[id number] and prescription medicines only as told by your health care provider. If you were prescribed an antibiotic medicine, take or apply it as told by your health care provider. Do not stop using the antibiotic even if your condition improves. General instructions Keep the dressing dry as told by your health care provider. Do not take baths, swim, use a hot tub, or do anything that puts your wound underwater until your health care provider approves. Ask your health care provider if you may take showers. You may only be allowed to take sponge baths. Keep all follow-up visits. This is important. Contact a health care provider if: You have redness, swelling, or pain around your wound. You have more fluid or blood coming from your wound. Your wound, or the area around your wound, feels warm to the touch. You have pus or a bad smell coming from your wound. Get help right away if: You have a red streak that goes away from the skin tear. You have a fever and chills, and your symptoms suddenly get worse. Summary A skin tear is a wound in which the top layers of skin have peeled off from the deeper skin or tissues underneath. A skin tear is often repaired with tape or skin adhesive strips, and a bandage (dressing) may be applied over the tape or the adhesive strips. Change any dressings as told by your health care provider. Take or apply cdsx-tic-lvmglkv and prescription medicines only as told by your health care provider. Contact a health care provider if you have signs of infection. This information is not intended to replace advice given to you by your health care provider. Make sure you discuss any questions you have with your health care provider. Document Revised: 12/26/2020 Document Reviewed: 12/26/2020 [employer] Patient Education 2022 [employer] Laceration Care, Adult A laceration is a cut that may go through all layers of the skin. The cut may also go into the tissue that is right under the skin. Some cuts heal on their own. Other cuts need to be closed with stitches (sutures), nahid, skin adhesive strips, or skin glue. Taking care of your cut lowers your risk of infection, helps your injury heal better, and may prevent scarring. General tips Keep your wound clean and dry. Do not scratch or pick at your wound. Wash your hands with soap and water for at least 20 seconds before and after touching your wound or changing your bandage (dressing). If you cannot use soap and water, use hand manager operations research. Do not usedisinfectants or antiseptics, such as rubbing alcohol, to clean your wound unless told by your doctor. If you were given a bandage, change it at least once a day, or as told by your doctor. You should also change it if it gets wet or dirty. How to take care of your cut If your doctor used stitches or nahid: Keep the wound fully dry for the first 24 hours, or as told by your doctor. After that, you may take a shower or a bath. Do not soak the wound in water until after the stitches or nahid have been taken out. Clean the wound once a day, or as told by your doctor. To do this: Wash the wound with soap and water. Rinse the wound with water to remove all soap. Pat the wound dry with a clean towel. Do not rub the wound. After you clean the wound, put a thin layer of antibiotic ointment, another ointment, or a nonstick bandage on it as told by your doctor. This will help to: Prevent infection. Keep the bandage from sticking to the wound. Have your stitches or nahid taken out as told by your doctor. If your doctor used skin adhesive strips: Do not get the skin adhesive strips wet. You can take a shower or a bath, but keep the wound dry. If the wound gets wet, pat it dry with a clean towel. Do not rub the wound. Skin adhesive strips fall off on their own. You can trim the strips as the wound heals. Do not take off any strips that are still stuck to the wound unless told by your doctor. The strips will fall off after a while. If your doctor used skin glue: You may take a shower or a bath, but try to keep the wound dry. Do not soak the wound in water. After you take a shower or a bath, pat the wound dry with a clean towel. Do not rub the wound. Do not do any activities that will make you sweat a lot until the skin glue has fallen off. Do not apply liquid, cream, or ointment medicine to your wound while the skin glue is still on. If a bandage is placed over the wound, do not put tape right on top of the skin glue. Do not pick at the glue. The skin glue usually stays on for 5 1 0 days. Then, it falls off the skin. Follow these instructions at home: Medicines Take uatb-bbe-tlrxmrj and prescription medicines only as told by your doctor. If you were prescribed an antibiotic medicine, take or apply it as told by your doctor. Do not stop using it even if you start to feel better. Managing pain and swelling If told, put ice on the injured area. To do this: Put ice in a plastic bag. Place a towel between your skin and the bag. Leave the ice on for 20 minutes, 2 3 times a day. Take off the ice if your skin turns bright red. This is very important. If you cannot feel pain, heat, or cold, you have a greater risk of damage to the area. Raise the injured area above the level of your heart while you are sitting or lying down. General instructions Avoid any activity that could make your wound reopen. Check your wound every day for signs of infection. Check for: More redness, swelling, or pain. Fluid or blood. Warmth. Pus or a bad smell. Keep all follow-up visits. Contact a doctor if: You got a tetanus shot and you have any of these problems where the needle went in: Swelling. Very bad pain. Redness. Bleeding. A wound that was closed breaks open. You have a fever. You have any of these signs of infection in your wound: More redness, swelling, or pain. Fluid or blood. Warmth. Pus or a bad smell. You see something coming out of the wound, such as wood or glass. Medicine does not make your pain go away. You notice a change in the color of your skin near your wound. You need to change the bandage often. You have a new rash. You lose feeling (have numbness) around the wound. Get help right away if: You have very bad swelling around the wound. Your pain suddenly gets worse and is very bad. You have painful lumps near the wound or on skin anywhere on your body. You have a red streak going away from your wound. The wound is on your hand or foot, and: You cannot move a finger or toe. Your fingers or toes look pale or bluish. Summary A laceration is a cut that may go through all layers of the skin. The cut may also go into the tissue right under the skin. Some cuts heal on their own. Others need to be closed with stitches, nahid, skin adhesive strips, or skin glue. Follow your doctor's instructions for caring for your cut. Proper care of a cut lowers the risk of infection, helps the cut heal better, and may prevent scarring. This information is not intended to replace advice given to you by your health care provider. Make sure you discuss any questions you have with your health care provider. Document Revised: 11/28/2021 Document Reviewed: 11/28/2021 [employer] Patient Education 2022 [employer]. I understand that [facility] is not responsible for any personal belongings/effects or valuables that have not been identified on the valuables and belongings list. Any personal effects brought into the facility and not recorded on the valuables and belongings form are the responsibility of the patient/family/significant other. I have received the indicated patient education materials/instructions and medication list and have verbalized understanding. Patient Name: BRINDA COLLINS Patient/Responsible Adult Signature: Date/Time: ____ Provider Signature: ____ Date/Time: ____ 11/27/2023 [facility] [place] ED Discharge Note - Text ED Discharge No te Entered On: 11/26/2023 19:08 MST Performed On: 11/26/2023 19:08 MST by Patt Moore ED Discharge Note Discharge Disposition : Home Discharge Vital Signs : N/A Team Care at Discharge : Not applicable Individuals Taught : Patient Teaching Method : Explanation Teaching Outcome : Communicated understanding Teach Back : Yes Document Assistance Summary : Document assistance summary Patt Moore - 11/26/2023 19:08 [facility] 11/27/2023 [facility] [place] ED Physician Notes Patient: BRINDA COLLINS (EV) Age: 73 years Sex: F : 1950 Associated Diagnoses: None Author: Scott Lynne MD Addendum Teaching-Supervisory Addendum-Brief I participated in the following activities of this patients care: the medical history, the physical exam, medical decision making. I personally performed: supervision of the patient's care, the medical history, the physical exam. The case was discussed with: the physician assistant printer floor covering. Evaluation and management service: I agree with the evaluation and management decisions made in this patient's care. Results interpretation: I agree with the study interpretation in this patient's care. Notes: Patient is a very pleasant 73-year-old female with PMH significant for HTN, HLD, RA and atrial fibrillation anticoagulated on Eliquis presenting to the ED for evaluation of bilateral thumb lacerations. Patient states she was using a mandolin prior to arrival when she accidentally cut both her thumbs. She was able to control bleeding with bandages and was brought to the ER by son for further management. On arrival patient states that pain is minimal. She is right-hand dominant. Tetanus status is unknown. Patient did not sustain any other injury. ROS: Constitutional: No fevers, chills, sweats Skin: +b/l thumb lacerations Eye: No recent visual problems ENMT: No ear pain, nasal congestion, sore throat Respiratory: No shortness of breath, cough Cardiovascular: No chest pain, palpitations, syncope Gastrointestinal: No nausea, vomiting, diarrhea PE: GEN: No acute distress, alert and oriented x 3 HEENT: mucous membranes moist NECK: supple CV: regular rate and rhythm PULM: clear to auscultation bilaterally, normal respiratory excursion ABD: soft, nontender, nondistended, normoactive bowel sounds, no guarding or rebound. EXTR: 0.25 cm skin avulsion to right thumb with 0.25 cm superficial laceration of left thumb. Right thumb is actively bleeding. Patient has full range of motion of MCP and DIP of both thumbs. Brisk capillary refill and sensation intact. NEURO: Non-focal, moves all extremities MDM: Patient was seen upon arrival by myself. Patient was well-appearing. Airway, breathing and circulation were intact. Patient is a pleasant 73-year-old female with PMH significant for HTN, HLD, RA and atrial fibrillation anticoagulated on Eliquis presenting to the ED for bilateral thumb lacerations. Patient was using a mandolin prior to arrival and accidentally cut both arms. She was able to control bleeding with bandages and was brought to the ED by her son for further management. She endorses minimal pain on arrival. She is right-hand dominant. She did not sustain any other injury. On arrival, patient nontoxic and in no acute distress. She is afebrile and hemodynamically stable. Heart sounds normal lungs clear. Abdomen soft, nondistended and nontender. Patient has 0.25 cm skin avulsion to the right thumb and 0.25 cm superficial laceration of the left thumb. There is active bleeding from the right thumb. Patient has full range of motion of MCP and DIP of thumbs bilaterally. Brisk capillary refill and sensation is intact. Patient's tetanus updated. Quick clot and Coban dressings applied and patient observed for rebleeding. On reevaluation there was some rebleeding on the right side. Small amount of lido with epi was injected into the skin avulsion site on the right side as left bleeding was well-controlled. Bleeding was controlled. Surgicel was placed on wound and patient was discharged with Coban dressing in place. No rebleeding noted. Lacerations are otherwise superficial and do not require repair. Patient discharged with instructions to follow-up with PCP for wound reevaluation. Told to return for worsening symptoms. Explained that she is at risk for rebleeding given anticoagulant use. She verbalized understanding of this. Patient seen and evaluated with Yael NEWSOME. Please review her note for details regarding patient's full evaluation, workup and disposition from the ED. , The patient was seen with JEROD Linder. Please see their note for full dictation. Blanca Flores scribe, am scribing for, and in the presence of, Scott Lynne MD. This chart is electronically signed by myself, pineda Delgado. Scott Flores MD, personally performed the services described in this documentation, as scribed by Blanca Enciso in my presence, and it is both accurate and complete. Electronically Signed By: Scott Lynne MD On 11/26/23 23:02 Co Signature By: Modify Signature By: Blanca Enciso On 11/26/23 18:02 11/27/2023 [facility] [place] ED Physician Notes Patient: BRINDA COLLINS (EV) Age: 73 years Sex: F : 1950 Associated Diagnoses: None Author: Yael Lomeli Basic Information Time seen: Provider Initial Contact Time 11/26/2023 17:27. History source: Patient, son. Arrival mode: Private vehicle. History limitation: None. Additional information: Chief Complaint (ST) Chief Complaint ED: Bilat thumb laceration, pt states picked up mandelin. On eliquis, bleeding currently controlled 11/26/23 17:25. History of Present Illness The patient presents with bilateral thumb lacerations This patient is a 73 year old female on Eliquis with past medical history significant for hypertension, hyperlipidemia and rheumatoid arthritis presenting to the emergency department for bilateral thumb lacerations. The patient cut her both of her thumbs accidently while using a Mandelin. The patient was able to control the bleeding with bandages, and was brought to the ER by her son. She notes that her pain is minimal. The patient is right hand dominant She is currently on Eliquis. Her tetanus status is unknown.. Review of Systems Constitutional symptoms: No fever, no chills. Skin symptoms: No jaundice, no rash. Eye symptoms: No recent vision problems, ENMT symptoms: No nasal congestion, Respiratory symptoms: No shortness of breath, no cough. Cardiovascular symptoms: No chest pain, Gastrointestinal symptoms: No abdominal pain, Genitourinary symptoms: No dysuria, no hematuria. Musculoskeletal symptoms: No back pain, no Muscle pain. Neurologic symptoms: No headache, Additional review of systems information: bilateral thumb lacerations. Health Status Allergies: No known allergies. Medications: Eliquis. Immunizations: no tetanus up to date. Past Medical/ Family/ Social History Medical history Cardiovascular: hypertension, atrial fibrillation, hyperlipidemia. Musculoskeletal: rheumatoid arthritis. Surgical history: no appendectomy, no cholecystectomy. Social history: Social and Psychosocial Habits Alcohol 11/26/2023 Use: Current Comment: occasional - 11/26/2023 17:27 - Zeinab Villavicencio RN Home/Environment 11/26/2023 Sikhism restrictions/concerns: None Living situation: Home/Independent Substance Abuse 11/26/2023 Use: Denies Tobacco 11/26/2023 Tobacco Use: Never (less than 100 in l . Physical Examination Vital Signs Vital-Signs 11/26/2023 17:25 MST Pain Intensity 0 Pain Scale Used Numeric Rating Scale Temp Tympanic 36.7 deg C Normal Heart Rate 68 bpm Normal NIBP Systolic 150 mm Hg H NIBP Diastolic 49 mm Hg L Resp Rate (Monitor) 18 Breaths/Min Normal SPO2 95 % Normal Oxygen Method Room air . General: Alert, no acute distress. Skin: Warm, dry. Head: Normocephalic. Neck: Trachea midline, no tenderness. Eye: Extraocular movements are intact, normal conjunctiva, vision unchanged. Ears, nose, mouth and throat: Oral mucosa moist, no pharyngeal erythema or exudate. Cardiovascular: Regular rate and rhythm, Normal peripheral perfusion, No edema. Respiratory: Lungs are clear to auscultation, respirations are non-labored, breath sounds are equal, Symmetrical chest wall expansion. Chest wall: No tenderness, No deformity. Back: Normal alignment. Musculoskeletal: No swelling, no deformity, Fingers/toes: 0.25 small skin avulsion to right thumb, 0.25cm superficial laceration to left thumb. active bleeding to R thumb, normal ROM of digits, no tendon involvement, radial pulse intact. Gastrointestinal: Soft, Nontender, Non distended, Normal bowel sounds. Neurological: Alert and oriented to person, place, time, and situation, No focal neurological deficit observed, normal sensory observed, normal motor observed, normal speech observed. Psychiatric: Cooperative, appropriate mood and affect. Medical Decision Making Differential Diagnosis:: Finger laceration. Rationale: Patient is a 73-year-old female who presents emergency department for bilateral thumb lacerations while using a mandolin. Patient is on blood thinners. She has a history of A-fib. Unknown last tetanus will update today. Will apply quick clot and Coban and reassess. Patient agreeable to plan.. Orders Launch Order Profile (Selected) Inpatient Orders Completed ED Initial Screening: . Notes: Patient did have some rebleeding to the bandage therefore injected 0.5 mL of lido with epi at the laceration site on the right thumb. Left thumb had no rebleeding. Both laceration and skin avulsion are very superficial. Patient is on blood thinners likely the cause of her bleeding. Patient had success with the second attempt. Surgicel was placed on the wound as well twice. Patient does not have a pressure dressing on the wound just Ryan. Patient did not have any rebleeding through her bandage on either thumb. Recommend close follow-up with outpatient PCP. Patient understands return precautions, Patient feels comfortable with the discharge plan, understands red flag symptoms and return emergency department if they occur.. Reexamination/ Reevaluation Notes: Pt was observed in the ER and remains stable throughout. Procedure Laceration repair Notes: 0.5mL 1% lido w epi injected at site of skin avulsion on R thumb. Impression and Plan skin avulsion R thumb L thumb laceration, superficial afib hx CVA HTN hyperlipidemia RA Plan Condition: Stable. Disposition: Discharged: to home. Patient was given the following educational materials: Skin Tear, Laceration Care, Adult, [id number]. Follow up with: Follow up with primary care provider Within 1 to 2 days. Counseled: Patient, Regarding diagnosis, Regarding diagnostic results, Regarding treatment plan, Regarding prescription, Patient indicated understanding of instructions. Notes: Supervised and seen by Dr. Scott Lynne MD. I pineda Delgado, am scribing for, and in the presence of, JEROD Linder. This chart is electronically signed by myself, pineda Delgado Nicole Salvatore, PA personally performed the services described in this documentation, as scribed by Blanca Enciso in my presence, and it is accurate and complete.. Electronically Signed By: Yael Lomeli On 11/26/23 20:22 Co Signature By: Scott Lynne MD On 11/26/23 23:02 Modify Signature By: Yael Lomeli On 11/26/23 19:27 11/27/2023 [facility] [place] ED Triage - Text ED Triage Entered On : 11/26/2023 17:27 MST Performed On: 11/26/2023 17:25 MST by Zeinab Villavicencio NURSE ORTHO Triage Chief Complaint ED : Bilat thumb laceration, pt states picked up mandelin. On eliquis, bleeding currently controlled Arrival Time : 11/26/2023 17:11 MST Reason for visit : LAC Mode of Arrival : Ambulatory Zeinab Villavicencio RN - 11/26/2023 17:25 MST DCP GENERIC CODE Tracking Acuity : 3 - [place]gent [place]acking [place] [facility] [place] Zeinab Villavicencio RN - 11/26/2023 17:25 MST Travel to foreign country last 30 days : No Does Pt Have Symptoms of COVID 19 : No Tested for COVID19 in the past 14 days : No, Patient stated Does the Patient state known exposure to a COVID-19 positive case in the last 14 days : No Patient Vaccinated for COVID-19 : Patient declined to answer Zeinab Villavicencio RN - 11/26/2023 17:25 [facility] Infectious Disease Risk Screening Grid Cough < 2 wks of unknown origin : NO Cough > 2 weeks : NO Blood in Sputum : NO Fever or self-reported Fever : NO Rash of unknown origin : NO Headache : NO Stiff neck : NO Night Sweats : NO Unexplained Weight Loss : NO Diarrhea (3 episode per day) : NO Zeinab Villavicencio RN - 11/26/2023 17:25 [facility] Preferred Language for Healthcare Discussions : Dutch Assistive Device for Communication : No Sensory Deficits : None Temperature Tympanic : 36.7 deg C(Converted to: 98.1 deg F) NIBP Systolic : 150 mm Hg (H) NIBP Diastolic : 49 mm Hg (L) Heart Rate : 68 bpm Respiratory Rate (Monitor) : 18 Breaths/Min SPO2 : 95 % Oxygen Method : Room air Pain Intensity : 0 Pain Scale Used : Numeric Rating Scale Status : N/A Last Tetanus : Unknown Todays Date : 11/26/2023 [facility] Living Situation : Lives with family SIRS Criteria : N/A SIRS Actual or Suspected Infection : No INF Disease TB Screening Calc : 0 Pediatric Patient : N/A Zeinab Villavicencio RN - 11/26/2023 17:25 [facility] Drug/Clinical Calc Ht/Wt [place] Height Method : Stated Height Measurement Used : inches Height in : 64 Inch Height (cm) : 162.56 cm Weight Method : Actual Weight Measurement Used : kilograms Weight kg (metric) : 66.6 kg Drug Calc Weight (kg) : 66.6 kg Scale Type : Standing scale BSA-pt care : 1.73 BMI : 25.203 kg/m2 [place] Body Weight : 54.7 kg Adjusted Body Weight : 59.46 kg BMI Abnormal High Criteria : 39 BMI High Check : 14 BMI Abnormal Low Criteria : 17 BMI Low Check : 8 ABW Calc : 59.46 kg ABW Calc2 : 66.6 kg Pediatric Patient : N/A Adult Pt : Adult Pt Ped Sepsis Conditional : Adult Pt Adult Sepsis Conditional : Adult Pt Peds Skin Risk : N/A Adult Skin Risk : N/A Zeinab Villavicencio RN - 11/26/2023 17:25 [facility] ED Reason For Visit (As Of: 11/26/2023 17:27:16 [facility]) Diagnoses(Active) Laceration of thumb Date: 11/26/2023 ; Diagnosis Type: Reason For Visit ; Confirmation: Complaint of ; Clinical Dx: Laceration of thumb ; Classification: Medical ; Clinical Service: Emergency medicine ; Code: PNED ; Probability: 0 ; Diagnosis Code: [id number] Allergies and Current Meds (ED) (As Of: 11/26/2023 17:27:17 [facility]) Allergies (Active) NKA Estimated Onset Date: Unspecified ; Created By: Zeinab Villavicencio RN; Reaction Status: Active ; Category: Drug ; Substance: NKA ; Type: Allergy ; Updated By: Zeinab Villavicencio RN; Reviewed Date: 11/26/2023 17:27 [facility] Medication List (As Of: 11/26/2023 17:27:17 [facility]) 11/27/2023 [facility] [place] Physician Emergency department Note Patient: BRINDA COLLINS (EV) Age: 73 years Sex: F : 1950 Associated Diagnoses: None Author: Yael Lomeli Basic Information Time seen: Provider Initial Contact Time 11/26/2023 17:27. History source: Patient, son. Arrival mode: Private vehicle. History limitation: None. Additional information: Chief Complaint (ST) Chief Complaint ED: Bilat thumb laceration, pt states picked up mandelin. On eliquis, bleeding currently controlled 11/26/23 17:25. History of Present Illness The patient presents with bilateral thumb lacerations This patient is a 73 year old female on Eliquis with past medical history significant for hypertension, hyperlipidemia and rheumatoid arthritis presenting to the emergency department for bilateral thumb lacerations. The patient cut her both of her thumbs accidently while using a Mandelin. The patient was able to control the bleeding with bandages, and was brought to the ER by her son. She notes that her pain is minimal. The patient is right hand dominant She is currently on Eliquis. Her tetanus status is unknown.. Review of Systems Constitutional symptoms: No fever, no chills. Skin symptoms: No jaundice, no rash. Eye symptoms: No recent vision problems, ENMT symptoms: No nasal congestion, Respiratory symptoms: No shortness of breath, no cough. Cardiovascular symptoms: No chest pain, Gastrointestinal symptoms: No abdominal pain, Genitourinary symptoms: No dysuria, no hematuria. Musculoskeletal symptoms: No back pain, no Muscle pain. Neurologic symptoms: No headache, Additional review of systems information: bilateral thumb lacerations. Health Status Allergies: No known allergies. Medications: Eliquis. Immunizations: no tetanus up to date. Past Medical/ Family/ Social History Medical history Cardiovascular: hypertension, atrial fibrillation, hyperlipidemia. Musculoskeletal: rheumatoid arthritis. Surgical history: no appendectomy, no cholecystectomy. Social history: Social and Psychosocial Habits Alcohol 11/26/2023 Use: Current Comment: occasional - 11/26/2023 17:27 - Zeinab Villavicencio RN Home/Environment 11/26/2023 Sikhism restrictions/concerns: None Living situation: Home/Independent Substance Abuse 11/26/2023 Use: Denies Tobacco 11/26/2023 Tobacco Use: Never (less than 100 in l . Physical Examination Vital Signs Vital-Signs 11/26/2023 17:25 MST Pain Intensity 0 Pain Scale Used Numeric Rating Scale Temp Tympanic 36.7 deg C Normal Heart Rate 68 bpm Normal NIBP Systolic 150 mm Hg H NIBP Diastolic 49 mm Hg L Resp Rate (Monitor) 18 Breaths/Min Normal SPO2 95 % Normal Oxygen Method Room air . General: Alert, no acute distress. Skin: Warm, dry. Head: Normocephalic. Neck: Trachea midline, no tenderness. Eye: Extraocular movements are intact, normal conjunctiva, vision unchanged. Ears, nose, mouth and throat: Oral mucosa moist, no pharyngeal erythema or exudate. Cardiovascular: Regular rate and rhythm, Normal peripheral perfusion, No edema. Respiratory: Lungs are clear to auscultation, respirations are non-labored, breath sounds are equal, Symmetrical chest wall expansion. Chest wall: No tenderness, No deformity. Back: Normal alignment. Musculoskeletal: No swelling, no deformity, Fingers/toes: 0.25 small skin avulsion to right thumb, 0.25cm superficial laceration to left thumb. active bleeding to R thumb, normal ROM of digits, no tendon involvement, radial pulse intact. Gastrointestinal: Soft, Nontender, Non distended, Normal bowel sounds. Neurological: Alert and oriented to person, place, time, and situation, No focal neurological deficit observed, normal sensory observed, normal motor observed, normal speech observed. Psychiatric: Cooperative, appropriate mood and affect. Medical Decision Making Differential Diagnosis:: Finger laceration. Rationale: Patient is a 73-year-old female who presents emergency department for bilateral thumb lacerations while using a mandolin. Patient is on blood thinners. She has a history of A-fib. Unknown last tetanus will update today. Will apply quick clot and Coban and reassess. Patient agreeable to plan.. Orders Launch Order Profile (Selected) Inpatient Orders Completed ED Initial Screening: . Notes: Patient did have some rebleeding to the bandage therefore injected 0.5 mL of lido with epi at the laceration site on the right thumb. Left thumb had no rebleeding. Both laceration and skin avulsion are very superficial. Patient is on blood thinners likely the cause of her bleeding. Patient had success with the second attempt. Surgicel was placed on the wound as well twice. Patient does not have a pressure dressing on the wound just Ryan. Patient did not have any rebleeding through her bandage on either thumb. Recommend close follow-up with outpatient PCP. Patient understands return precautions, Patient feels comfortable with the discharge plan, understands red flag symptoms and return emergency department if they occur.. Reexamination/ Reevaluation Notes: Pt was observed in the ER and remains stable throughout. Procedure Laceration repair Notes: 0.5mL 1% lido w epi injected at site of skin avulsion on R thumb. Impression and Plan skin avulsion R thumb L thumb laceration, superficial afib hx CVA HTN hyperlipidemia RA Plan Condition: Stable. Disposition: Discharged: to home. Patient was given the following educational materials: Skin Tear, Laceration Care, Adult, [id number]. Follow up with: Follow up with primary care provider Within 1 to 2 days. Counseled: Patient, Regarding diagnosis, Regarding diagnostic results, Regarding treatment plan, Regarding prescription, Patient indicated understanding of instructions. Notes: Supervised and seen by MD. Mark Mills scribe, am scribing for, and in the presence of, JEROD Linder. This chart is electronically signed by myself, pineda Delgado Nicole Salvatore, PA personally performed the services described in this documentation, as scribed by Blanca Enciso in my presence, and it is accurate and complete.. Electronically Signed By: Yeal Lomeli On 11/26/23 20:22 Co Signature By: Scott Lynne MD On 11/26/23 23:02 Modify Signature By: Yael Lomeli On 11/26/23 19:27 11/27/2023 [facility] [place] Physician Emergency department Note Patient: BRINDA COLLINS (EV) Age: 73 years Sex: F : 1950 Associated Diagnoses: None Author: Scott Lynne MD Addendum Teaching-Supervisory Addendum-Brief I participated in the following activities of this patients care: the medical history, the physical exam, medical decision making. I personally performed: supervision of the patient's care, the medical history, the physical exam. The case was discussed with: the physician assistant printer floor covering. Evaluation and management service: I agree with the evaluation and management decisions made in this patient's care. Results interpretation: I agree with the study interpretation in this patient's care. Notes: Patient is a very pleasant 73-year-old female with PMH significant for HTN, HLD, RA and atrial fibrillation anticoagulated on Eliquis presenting to the ED for evaluation of bilateral thumb lacerations. Patient states she was using a mandolin prior to arrival when she accidentally cut both her thumbs. She was able to control bleeding with bandages and was brought to the ER by son for further management. On arrival patient states that pain is minimal. She is right-hand dominant. Tetanus status is unknown. Patient did not sustain any other injury. ROS: Constitutional: No fevers, chills, sweats Skin: +b/l thumb lacerations Eye: No recent visual problems ENMT: No ear pain, nasal congestion, sore throat Respiratory: No shortness of breath, cough Cardiovascular: No chest pain, palpitations, syncope Gastrointestinal: No nausea, vomiting, diarrhea PE: GEN: No acute distress, alert and oriented x 3 HEENT: mucous membranes moist NECK: supple CV: regular rate and rhythm PULM: clear to auscultation bilaterally, normal respiratory excursion ABD: soft, nontender, nondistended, normoactive bowel sounds, no guarding or rebound. EXTR: 0.25 cm skin avulsion to right thumb with 0.25 cm superficial laceration of left thumb. Right thumb is actively bleeding. Patient has full range of motion of MCP and DIP of both thumbs. Brisk capillary refill and sensation intact. NEURO: Non-focal, moves all extremities MDM: Patient was seen upon arrival by myself. Patient was well-appearing. Airway, breathing and circulation were intact. Patient is a pleasant 73-year-old female with PMH significant for HTN, HLD, RA and atrial fibrillation anticoagulated on Eliquis presenting to the ED for bilateral thumb lacerations. Patient was using a mandolin prior to arrival and accidentally cut both arms. She was able to control bleeding with bandages and was brought to the ED by her son for further management. She endorses minimal pain on arrival. She is right-hand dominant. She did not sustain any other injury. On arrival, patient nontoxic and in no acute distress. She is afebrile and hemodynamically stable. Heart sounds normal lungs clear. Abdomen soft, nondistended and nontender. Patient has 0.25 cm skin avulsion to the right thumb and 0.25 cm superficial laceration of the left thumb. There is active bleeding from the right thumb. Patient has full range of motion of MCP and DIP of thumbs bilaterally. Brisk capillary refill and sensation is intact. Patient's tetanus updated. Quick clot and Coban dressings applied and patient observed for rebleeding. On reevaluation there was some rebleeding on the right side. Small amount of lido with epi was injected into the skin avulsion site on the right side as left bleeding was well-controlled. Bleeding was controlled. Surgicel was placed on wound and patient was discharged with Coban dressing in place. No rebleeding noted. Lacerations are otherwise superficial and do not require repair. Patient discharged with instructions to follow-up with PCP for wound reevaluation. Told to return for worsening symptoms. Explained that she is at risk for rebleeding given anticoagulant use. She verbalized understanding of this. Patient seen and evaluated with Yael NEWSOME. Please review her note for details regarding patient's full evaluation, workup and disposition from the ED. , The patient was seen with JEROD Linder. Please see their note for full dictation. I, pineda Delgado, am scribing for, and in the presence of, Scott Lynne MD. This chart is electronically signed by myself, pineda Delgado. I, Scott Lynne MD, personally performed the services described in this documentation, as scribed by Blanca Enciso in my presence, and it is both accurate and complete. Electronically Signed By: Scott Lynne MD On 11/26/23 23:02 Co Signature By: Modify Signature By: Blanca Enciso On 11/26/23 18:02 11/27/2023 [facility] [place] Vital Signs Vital Sign Value Date Comments Source Temperature PO 36.9 Marielle 12/09/2023 [facility] Heart Rate 55 bpm 12/09/2023 [facility] Respiratory Rate 16 Breaths/Min 12/09/2023 [facility] SPO2 98 % 12/09/2023 [facility] Systolic 148 mm[Hg] 12/09/2023 [facility] Diastolic 71 mm[Hg] 12/09/2023 [facility] Temperature PO 36.8 Marielle 12/08/2023 [facility] Heart Rate 59 bpm 12/08/2023 [facility] Respiratory Rate 16 Breaths/Min 12/08/2023 [facility] SPO2 97 % 12/08/2023 [facility] Systolic 158 mm[Hg] 12/08/2023 [facility] Diastolic 73 mm[Hg] 12/08/2023 [facility] Glucose Level 180 mg/dL 12/08/2023 [facility] Height 162 cm 12/08/2023 [facility] Drug Calc Weight (kg) 63.492 kg 12/08/2023 [facility] BMI 24.193 kg/m2 12/08/2023 [facility] Temperature Temporal Artery 36.7 Marielle 12/08/2023 [facility] Systolic 133 mm[Hg] 12/08/2023 [facility] Diastolic 96 mm[Hg] 12/08/2023 [facility] Heart Rate 63 bpm 12/08/2023 [facility] Respiratory Rate 18 Breaths/Min 12/08/2023 [facility] SPO2 97 % 12/08/2023 [facility] Heart Rate 62 bpm 11/27/2023 [facility] Respiratory Rate 18 Breaths/Min 11/27/2023 [facility] SPO2 96 % 11/27/2023 [facility] Systolic 142 mm[Hg] 11/27/2023 [facility] Diastolic 58 mm[Hg] 11/27/2023 [facility] Height 162.56 cm 11/27/2023 [facility] Drug Calc Weight (kg) 66.6 kg 11/27/2023 [facility] BMI 25.203 kg/m2 11/27/2023 [facility] Tympanic Temp 36.7 Marielle 11/27/2023 [facility] Systolic 150 mm[Hg] 11/27/2023 [facility] Diastolic 49 mm[Hg] 11/27/2023 [facility] Heart Rate 68 bpm 11/27/2023 [facility] Respiratory Rate 18 Breaths/Min 11/27/2023 [facility] SPO2 95 % 11/27/2023 [facility] Encounters Location Location Details Encounter Type Encounter Number Reason For Visit Attending Provider ADM Date DC Date Status Source [facility] [place] Emergency [id number] Scott Lynne 11/27 [facility] Emergency [id number] Luis A Peng 12/07 [facility] Procedures Procedure Code Date Perfomer Comments Source CT ANGIOGRAPHY CHEST [id number] 12/08/2023 [facility] COMPREHEN METABOLIC PANE 68923 12/08/2023 [facility] ASSAY THYROID STIM HORMO [id number] 12/08/2023 [facility] ASSAY OF TROPONIN QUANT 05961 12/08/2023 [facility] COMPLETE CBC W/AUTO DIFF 06584 12/08/2023 [facility] FIBRIN DEGRADATION QUANT 62829 12/08/2023 [facility] Michelle ELECTROCARDIOGRAM TRACIN [id number] 12/08/2023 [facility] Michelle LOCM 300-399MG/ML IODINE Q9967 12/08/2023 [facility] Michelle Social History Social History Date Source Social History TypeResponse Smoking Status Never (less than 100 in lifetime) entered on: 11/26/23 Sex Male [facility] Social History TypeResponse Smoking Status Never (less than 100 in lifetime) entered on: 11/26/23 Sex Male [facility] Assessment and Plan Result Assessment and Plan Date Source Assessment and Plan No data available fo r this section 12/09/2023 [facility] Michelle Assessment and Plan No data available fo r this section 11/27/2023 [facility] [place] Family History Results Value Date Source Family History No data available for this section 03/2024 [facility] Family History No data available for this section 11/06 [facility]
--- OUTSIDE RECORDS SUMMARY | 2024-09-29 12:14 | XMS_ITS | Continuity of Care Document ---
Author Organization [facility] Address [address] [place] [address]- Care Team Providers Care Manager Alliance Name Role Phone PCP, Unknown Primary Care Physician Unavailab le Encounter [facility] [phone] Date(s): 12/08/23 - 12/08/23 [facility] [address] [place] [address]- Encounter Diagnosis Non-cardiac chest pain(Discharge Diagnosis) - 12/08/23 Bradycardia, unspecified(Final) - Other chest pain(Final) - Hyperlipidemia, unspecified(Final) - Unspecified right bundle-branch block(Final) - Abnormal electrocardiogram [ECG] [EKG](Final) - Cough, unspecified(Final) - Personal history of transient ischemic attack (TIA), and cerebral infarction without residual deficits(Final) - FPC (current) use of anticoagulants(Final) - FPC (current) use of systemic steroids(Final) - Other oil heaterman (current) drug therapy(Final) - Discharge Disposition: Home or Self Care Attending Physician: Luis A Peng MD Allergies, Adverse Reactions, Alerts No Known Allergies Immunizations Given and Recorded Vaccine Date Status Refusal Reason Dipht/pert, acel/tetanus (Tdap) Adult 11/26/23 Giv en Medications amitriptyline 25 mg oral tablet Refills: 0, Maintenance Start Date: 12/08/23 Status: Ordered carvedilol 25 mg oral tablet Refills: 0, Maintenance Start Date: 12/08/23 Status: Ordered Eliquis 5 mg oral tablet 1 Tab Tab, PO, BID, Qty: 60 Tab, Refills: 0, Maintenance Start Date: 12/08/23 Status: Ordered folic acid 1 mg oral tablet Refills: 0, Maintenance Start Date: 12/08/23 Status: Ordered methotrexate 2.5 mg oral tablet Refills: 0, Maintenance Start Date: 12/08/23 Status: Ordered predniSONE 1 mg oral tablet Take 4 tablets (4 mg total) by mouth daily.* Start Date: 12/08/23 Status: Ordered rosuvastatin 20 mg oral tablet 1 Tab Tab, PO, qDay, Qty: 60 Tab, Refills: 0, Maintenance Start Date: 12/08/23 Status: Ordered Problem List Condition Confirmation Course Effective Dates Status Health St atus Informant Atrial fibrillation Confirmed Active CVA (cerebral vascular accident) Confirmed Active Hyperlipemia Confirmed Active RA (rheumatoid arthritis) Confirmed Active Results Laboratory List Name Date D-Dimer Quantitative 12/08/23 CBC w/Diff* (man diff if indicated) Comprehensive Metabolic Pane l (CMP (BMP + ALB, Tot Prot, Bili, CA, Alk Phos, ALT, AST)) 12/08/23 TSH w/FT4 Reflex 12/08/23 Troponin-I 12/08/23 Most recent to oldest [Reference Range]: 1 CBC Scan Auto Diff (12/08/23 2:44 PM) Lymphs [10.0-55.0 %] 13.6 % (12/08/23 2:44 PM) Monos. [0.0-15.0 %] 8.0 % (12/08/23 2:44 PM) Baso. [0.0-3.0 %] 0.8 % (12/08/23 2:44 PM) Neuts [35.0-80.0 %] 74.9 % (12/08/23 2:44 PM) Eos. [0.0-9.0 %] 2.7 % (12/08/23 2:44 PM) Glucose Level [83-110 mg/dL] 180 mg/dL *H* (12/08/23 2:44 PM) AST [5-34 Units/L] 23 Units/L (12/08/23 2:44 PM) ABS Neut [1.7-8.6 thousand/uL] 6.6 thous and/uL (12/08/23 2:44 PM) nRBC Auto 0 *NA* (12/08/23 2:44 PM) TSH [0.35-4.94 mcIU/mL] 1.62 mcIU/mL (12/08/23 2:44 PM) D-Dimer, Quant. [<=0.59 mg/L FEU] 5.50 m g/L FEU 1 *H* (12/08/23 3:50 PM) eGFRcr [>=90 mL/min/1.73m2] 78 mL/min/1. 73m2 2 *L* (12/08/23 2:44 PM) A/G Ratio 2 *NA* (12/08/23 2:44 PM) ABS Baso [0.0-0.3 thousand/uL] 0.1 thous and/uL (12/08/23 2:44 PM) ABS Eos [0.0-1.0 thousand/uL] 0.2 thousa nd/uL (12/08/23 2:44 PM) ABS Lymph [0.5-5.9 thousand/uL] 1.2 thou sand/uL (12/08/23 2:44 PM) ABS Stone [0.0-1.6 thousand/uL] 0.7 thous and/uL (12/08/23 2:44 PM) Albumin [3.5-5.0 gm/dL] 4.3 gm/dL (12/08/23 2:44 PM) Alkphos [40-150 Units/L] 73 Units/L (12/08/23 2:44 PM) ALT [6-55 Units/L] 31 Units/L (12/08/23 2:44 PM) Anion Gap [7-15 mmol/L] 11 mmol/L (12/08/23 2:44 PM) Bili Total [0.2-1.2 mg/dL] 1.1 mg/dL (12/08/23 2:44 PM) BUN [8-25 mg/dL] 14 mg/dL (12/08/23 2:44 PM) BUN/Games Manager Ratio [8.0-24.0] 17.5 (12/08/23 2:44 PM) Chloride [98-107 mmol/L] 105 mmol/L (12/08/23 2:44 PM) CO2 [23-31 mmol/L] 26 mmol/L (12/08/23 2:44 PM) Creatinine [0.57-1.25 mg/dL] 0.80 mg/dL (12/08/23 2:44 PM) Globulin 2 gm/dL *NA* (12/08/23 2:44 PM) Hct [37.0-47.0 %] 40.6 % (12/08/23 2:44 PM) Hgb [11.5-16.0 gm/dL] 13.8 gm/dL (12/08/23 2:44 PM) MCH [27.0-34.0 pg] 31.4 pg (12/08/23:44 PM) MCHC [32.0-37.0 gm/dL] 33.9 gm/dL (12/08/23 2:44 PM) MCV [80.0-100.0 fL] 92.5 fL (12/08/23:44 PM) MPV [7.5-11.5 fL] 7.5 fL (12/08/23:44 PM) Plt [130-400 thousand/uL] 192 thousand/u L (12/08/23:44 PM) Protein, Total [6.0-8.3 gm/dL] 6.7 gm/dL (12/08/23 2:44 PM) RBC [4.00-5.40 million/uL] 4.39 million/ uL (12/08/23 2:44 PM) RDW [11.5-16.0 %] 14.1 % (12/08/23 2:44 PM) Sodium [136-145 mmol/L] 142 mmol/L (12/08/23 2:44 PM) Troponin I [<=0.30 ng/mL] <0.01 ng/mL (12/08/23:44 PM) WBC [4.5-13.5 thousand/uL] 8.8 thousand/ uL (12/08/23 2:44 PM) Potassium [3.5-5.1 mmol/L] 4.1 mmol/L (12/08/23 2:44 PM) Calcium [8.4-10.2 mg/dL] 9.7 mg/dL (12/08/23 2:44 PM) 1Interpretive Data: D-DIMER INTERPRETIVE DATA When combined with a clinical assessment of low pretest probability, a D-dimer result below the ???0.50 ??g/mL FEU cutoff has been shown to have a high negative predictive value for venous thromboembolism. VTE Cut-Off: ??? 0.50 ??g/mL FEU Reference Interval: ??? 0.50 ??g/mL FEU 2Interpretive Data: As of 04-29-2022, reported eGFR is [...] <18 years and will not be performed. Radiology Reports * Exam Date Time Procedure Performing Provider Status 12/08/23 5:[address] Angio Chest PE Study Contributor_sys tem, [email or web address]; Auth (Verified) Notes: (CT Angio Chest PE Study) Reason For Exam: Chest pain RADRPT Radiation Dose CTDIVOL = 0 (mGy): DLP [...] * * Dictated by: Ramírez Johnston MD, MD Electronically signed by: Ramírez Johnston MD Transcribed by:AV , , , S: 12/08/2023 17:38 * * * F I N A L * * * * Exam Date Time Procedure Performing Provider Status 12/08/23 2:37 PM XR Chest 1 View Portable Contributor_sy stem, [email or web address]; Auth (Verified) Notes: (XR Chest 1 View Portable) Reason For Exam: Cough RADRPT PROCEDURE INFORMATION: Exam: XR Chest Exam date [...] I N A L * * * Vital Signs Most recent to oldest [Reference Range]: 1 2 3 Temperature PO [36-37.5 deg C] 36.9 deg C (12/08/23 6:00 PM) 36.8 deg C (12/08/23 4:00 PM) Temperature Temporal Artery [36.4-37.5 deg C] 36.7 deg C (12/08/23 1:50 PM) Heart Rate [51-119 bpm] 55 bpm (12/08/23 6:00 PM) 59 bpm (12/08/23 4:00 PM) 63 bpm (12/08/23 1:50 PM) Blood Pressure [91-139/51-89 mm Hg] 148/71mm Hg *H* (12/08/23 6:00 PM) 158/73mm Hg *H* (12/08/23 4:00 PM) 133/96mm Hg (12/08/23 1:50 PM) Resp Rate (Monitor) [13-20 Breaths/Min] 16 Breaths/Min (12/08/23 6:00 PM) 16 Breaths/Min (12/08/23 4:00 PM) 18 Breaths/Min (12/08/23 1:50 PM) SPO2 [92 %] 98 % (12/08/23 6:00 PM) 97 % (12/08/23 4:00 PM) 97 % (12/08/23 1:50 PM) Oxygen Method Room air (12/08/23 4:00 PM) Room air (12/08/23 1:50 PM) Glucose Level [83-110 mg/dL] 180 mg/dL *H* (12/08/23 2:44 PM) Height 162 cm (12/08/23 1:50 PM) Drug Calc Weight (kg) 63.492 kg (12/08/23 1:50 PM) Weight Method Stated (12/08/23 1:50 PM) BMI 24.193 kg/m2 (12/08/23 1:50 PM) Living Situation Lives with family (12/08/23 1:50 PM) Sensory Deficits None (12/08/23 1:50 PM) Social History Social History Type Response Smoking Status Never (less than 100 in lifetime) entered on: 11/26/23 Sex Male Hospital Discharge Instructions Patient Education 12/08/2023 16:55:31 Nonspecific Chest Pain, Adult Nonspecific Chest Pain, Adult Chest pain is an uncomfortable, tight, or painful feeling in the chest. The pain can feel like a crushing, aching, or squeezing pressure. A person can feel a burning or tingling sensation. Chest paincan also be felt in your back, neck, jaw, shoulder, or arm. This pain can be worse when you move, sneeze, or take a deep breath. Chest pain can be caused by a condition that is life-threatening. This must be treated right away. It can also be caused by something that is not life- threatening. If you have chest pain, it can be hard to know the difference, so it is important to get help right away to make sure that you do not have a serious condition. Some life-threatening causes of chest pain include: ??? Heart attack. ??? A tear in the body's main blood vessel (aortic dissection). ??? Inflammation around your heart (pericarditis). ??? A problem in the lungs, such as a blood clot (pulmonary embolism) or a collapsed lung (pneumothorax). Some non life-threatening causes of chest pain include: ??? Heartburn. ??? Anxiety or stress. ??? Damage to the bones, muscles, and cartilage that make up your chest wall. ??? Pneumonia or bronchitis. ??? Shingles infection (varicella-zoster virus). Your chest pain may come and go. It may also be constant. Your health care provider will do tests and other studies to find the cause of your pain. Treatment will depend on the cause of your chest pain. Follow these instructions at home: Medicines ??? Take [id number] and prescription medicines only as told by your health care provider. ??? If you were prescribed an antibiotic medicine, take it as told by your health care provider. Donot stop taking the antibiotic even if you start to feel better. Activity ??? Avoid any activities that cause chest pain. ??? Do not lift anything that is heavier than 10 lb (4.5 kg), or the limit that you are told, untilyour health care provider says that it is safe. ??? Rest as directed by your health care provider. ??? Return to your normal activities only as told by your health care provider. Ask your health care provider what activities are safe for you. Lifestyle ??? Do not use any products that contain nicotine or tobacco, such as cigarettes, e-cigarettes, andchewing tobacco. If you need help quitting, ask your health care provider. ??? Do not drink alcohol. ??? Make healthy lifestyle changes as recommended. These may include: ??? Getting regular exercise. Ask your health care provider to suggest some exercises that are safefor you. ??? Eating a heart-healthy diet. This includes plenty of fresh fruits and vegetables, whole grains,low-fat (lean) protein, and low-fat dairy products. A dietitian can help you find healthy eating options. ??? Maintaining a healthy weight. ??? Managing any other health conditions you may have, such as high blood pressure (hypertension) or diabetes. ??? Reducing stress, such as with yoga or relaxation techniques. General instructions ??? Pay attention to any changes in your symptoms. ??? It is up to you to get the results of any tests that were done. Ask your health care provider, or the department that is doing the tests, when your results will be ready. ??? Keep all follow-up visits as told by your health care provider. This is important. ??? You may be asked to go for further testing if your chest pain does not go away. Contact a health care provider if: ??? Your chest pain does not go away. ??? You feel depressed. ??? You have a fever. ??? You notice changes in your symptoms or develop new symptoms. Get help right away if: ??? Your chest pain gets worse. ??? You have a cough that gets worse, or you cough up blood. ??? You have severe pain in your abdomen. ??? You faint. ??? You have sudden, unexplained chest discomfort. ??? You have sudden, unexplained discomfort in your arms, back, neck, or jaw. ??? You have shortness of breath at any time. ??? You suddenly start to sweat, or your skin gets clammy. ??? You feel nausea or you vomit. ??? You suddenly feel lightheaded or dizzy. ??? You have severe weakness, or unexplained weakness or fatigue. ??? Your heart begins to beat quickly, or it feels like it is skipping beats. These symptoms may represent a serious problem that is an emergency. Do not wait to see if the symptoms will go away. Get medical help right away. Call your local emergency services (911 in the [place] Do not drive yourself to the hospital. Summary ??? Chest pain can be caused by a condition that is serious and requires urgent treatment. It may also be caused by something that is not life-threatening. ??? Your health care provider may do lab tests and other studies to find the cause of your pain. ??? Follow your health care provider's instructions on taking medicines, making lifestyle changes, and getting emergency treatment if symptoms become worse. ??? Keep all follow-up visits as told by your health care provider. This includes visits for any further testing if your chest pain does not go away. This information is not intended to replace advice given to you by your health care provider. Make sure you discuss any questions you have with your health care provider. Document Revised: 12/05/2021 Document Reviewed: 12/05/2021 [employer] Patient Education ?? 2022 [employer]. Follow Up Care 12/08/2023 13:49:17 With:Rosa Mendez MD Address: [facility] [address] [facility] [address] [place] [address]- When:5 to 7 days Comments:Cardiology Physician Emergency department Note * Luis A Peng MD: MODIFY, PERFORM Event Display: ED Physician Notes Authored Date: Patient: ??HENZE, BRINDA LINDA ? Age: ??73 years ?Sex: ??F ?: ??1950 ?Active Insurance: ??MEDICARE A Admitting MD: ?Location: ??[facility] ED: ED05: 01 ?PCP: ?? Author: ??Luis A Peng MD I have seen the patient with the associated SERGIO and the plan was discussed with me, and have completed my own complaint focused exam in entirety in addition to the detailed SERGIO examination. ? Vital signs reviewed General appearance: Nontoxic appearing Head: Normocephalic/atraumatic. ?? Respiratory: Normal rate and effort. ??Equal chest rise bilaterally Cardiovascular: Extremities well-perfused, hemodynamically stable Abdomen: Soft, nontender, nondistended, negative Cabrales sign Musculoskeletal: No deformity. Skin: normal color, no laceration ?? Neurological: Alert and oriented 73-year-old female with history of RA, A-fib on [facility], presenting with transient pain across the right lower anterior ribs which resolved prior to arrival.?? Denies a prior history, no modifying factors during the episode, no pleuritic symptoms.?? EKG shows a right bundle branch block.?? She has a benign abdominal exam, no right upper quadrant tenderness.?? We are performing a cardiac workup, will include D-dimer, chest x-ray?? See PA note for results, reassessment and final disposition ?? Electronically Signed By: Luis A Peng MD On 12/08/23 15:46 Co Signature By: Modify Signature By: Luis A Peng MD On 12/08/23 15:46 * Claudio Bach PA-C: PERFORM, MODIFY, MODIFY Event Display: ED Physician Notes Authored Date: [id number] Patient: ??BRINDA COLLINS ? Age: ??73 years ?Sex: ??F ?: ??1950 ?Active Insurance: ?? Admitting MD: ?Location: ??[facility] ED: ED05: 01 ?PCP: ??PCP, Unknown Author: ??Claudio Bach PA-C Date/Time ??Admit Date: ?? 12/08/23 13:48 Provider Contact Time: 12/08/2023 13:56 Mode of Arrival Mode of Arrival: ??Wheelchair ?? Chief Complaint Chief Complaint ED:??Pt arrived POV from home c/o of chest pressure for approx 1hr ??resolved now ? 12/08/23 13:50 No results found. History of Present Illness This is a 73-year-old female presents for evaluation with??anterior chest pain??that followed her bra line??that started a few hours ago??and only lasted about an hour.?? Patient reports she was making cookies at the time, and attempted to ignore it, but??she was concerned??after googling it, and??wanted to??get it checked out.?? Patient reports a history of??pericarditis in the past, and a history of paroxysmal atrial fibrillation, on Eliquis.?? Patient has never experienced any heart attackin the past.?? Patient has a history of RA and she attributes most of her musculoskeletal pain??to her RA.?? Patient denies any shortness of breath,??any??lightheadedness, or dizziness, and currently is??asymptomatic. Health Status ?? Status ??N/A ?? Physical Exam First Vitals Signs ?? Blood Pressure: ??133 / 96??(12/08/23 13:50) ?? Heart Rate: ??63??(12/08/23 13:50) ?? Respiratory Rate: ??18??(12/08/23 13:50) ?? SPO2: ??97%??(12/08/23 13:50) ?? Oxygen Method: ??Room air??(12/08/23 13:50) ?? Temperature Temporal Artery ??36.7??(12/08/23 13:50) ?? General: ??Alert.?? Skin: ??Warm, dry. ?? Head: ??Normocephalic.?? Neck: ??normal in appearance.?? Eye: ??Pupils are equal, round and reactive to light.?? Ears, nose, mouth and throat: ??Oral mucosa moist.?? Cardiovascular: ??Regular rate and rhythm, No murmur. ??No pretibial pitting edema Respiratory: ??Lungs are clear to auscultation, respirations are non-labored, breath sounds are equal. ?? Chest wall:?Non-tender to palpation Musculoskeletal: ??Moves all extremities. Most Recent Vitals T:??36.7?C ??(Temporal Artery)?? HR:??63?? RR:??18?? BP:??133/96?? SpO2:??97%?? Oxygen Method:??Room air?? WT:??140??lbs?? WT:??63.492??kg?? Emergency Department Orders Laboratory & Blood: ?CBC w/Diff* (man diff if indicated) (CBC w/Diff* (man diff if indicated))?Troponin-I (Troponin-I)?D-Dimer Quantitative (D-Dimer Quantitative)?Comprehensive Metabolic Panel (CMP (BMP + ALB, Tot Prot, Bili, CA, Alk Phos, ALT, AST))?TSH w/FT4 Reflex (TSH w/FT4 Reflex)?Radiology:?XR Chest 1 View Portable (Chest XR Port 1 View)?Diagnostic Tests:?Electrocardiogram (EKG)?? Laboratory Results ED Labs ??(last two resulted values within 24 hours) ?? Hematology WBC: ?8.8 Hemoglobin: ?13.8 Hematocrit: ?40.6 Platelets: ?192 Neutrophils: ?74.9 MCV: ?92.5 Lymph%: ?13.6 ?? Chemistry Sodium: ?142 Potassium: ?4.1 Chloride: ?105 CO2: ?26 Anion Gap: ?11 Glucose: ??180 (H) BUN: ?14 Creatinine: ?0.80 Calcium: ?9.7 Total Bilirubin: ?1.1 ALT: ?31 AST: ?23 Alk Phos: ?73 TSH: ?1.62 ?? Cardiac Troponin I: <0.01 ?? Coagulation D-Dimer, Quant: ??5.50 (H) ?? Diagnostic Results/Interpretation Radiology Result Date: ??12/08/23 17:05 ?? Verified By: ??Ramírez Johnston MD at 12/08/23 17:38 ? Report : ??CT Angio Chest PE Study?? IMPRESSION: 1. ?? Negative for pulmonary embolism. 2. ?? Cardiomegaly. 3. ?? Coronary arterial calcifications. 4. ?? Atherosclerosis thoracic aorta. 5. ?? Chronic biapical scarring with previous pulmonary surgery to be correlated with surgical history. 6. ?? Probable bronchocele in the left lower lobe. [...] at 12 months. (Reference: Winston) REFERENCES: Winston Meng et al. Guidelines for Management of Incidental Pulmonary Nodules Detected on CT Images: From the Fleischner Society 2017. Radiology. 2017;284(1):228-243. 12/08/23 16:56 ?? +++++++++++++++++++++++++++++++++++++++++++++++++++++++? Result Date: ??12/08/23 14:37 ?? Verified By: ??Filipe Wilkins MD at 12/08/23 14:47 ? Report : ??XR Chest 1 View Portable?? IMPRESSION: No acute cardiopulmonary process detected. 12/08/23 14:26 ?? +++++++++++++++++++++++++++++++++++++++++++++++++++++++? Reexamination/Reevaluation 12/08/2023 17:53:28 - I discussed lab and imaging results with patient and plan for discharge home.?? All questions answered. Medical Decision Making Differential Diagnosis:??Musculoskeletal pain, noncardiac chest pain,??pulmonary embolism, pneumonia ?? Comorbidities:??Paroxysmal atrial fibrillation,??TIA ?? Studies Independently Interpreted:??Chest x-ray images personally viewed interpreted by myself, no acute infiltrates, no cardiomegaly. ??CT??chest angio images personally viewed and interpreted by myself, no acute pulmonary embolism. ?? EKG:??Time: 13: 54 ventricular rate 58 bpm??sinus bradycardia with a??right bundle branch block, noST segment changes, T wave inversions or any signs of acute ischemia. ??Reviewed and interpreted byteddy and Dr. Peng. ?? Studies ordered/considered:??CBC, CMP, troponin, D-dimer ?? ED course:??Patient presents for evaluation with??lower chest wall??pain??that came and went??earlier today, symptoms lasted??about an hour.?? Patient did not experience any??lightheadedness, dizziness,??or shortness of breath with the pain.?? Patient has no history of ischemic cardiomyopathy, an d??has never experienced a heart attack.?? Patient had a cardiac workup, including a negative??troponin, her D-dimer was indeterminate, CT angio chest was performed that shows no acute pulmonary emboli or acute infiltrate.?Patient has a history of RA, and attributes most of her??musculoskeletal pain to her RA, I suspect the patient's symptoms??may be musculoskeletal in nature, do not suspect cardiac??causes of pain at this time.?? However, I did let the patient know that I??am unable to perform a??complete cardiac workup, and recommend close follow-up with cardiology. ??Patient has a heartscore of 3, and I feel she is safe for outpatient??management if symptoms get worse or return patient was instructed return to ED??for evaluation. Final Diagnosis Diagnosis this visit:?? Non-cardiac chest pain (R07.89) 12/08/2023 17:54 ?Discharge ? Disposition Discharge ? Order Details: ?12/08/23 17:55:00 MST, Now, Home or self care?? Follow-up Follow-Up Details: ?? Provider/Org Name: ??Rosa Mendez MD ?? Within: ??5 to 7 days?? Address: ?[address] [facility] [address] [facility] [address]; ; ?? Comments: ??Cardiology ? Problem List/Past Medical History Ongoing CVA (cerebral vascular accident) Hyperlipemia RA (rheumatoid arthritis) Historical No qualifying data Allergies NKA Social History Alcohol Current, 11/26/2023 Home/Environment Nondenominational restrictions/concerns: None. Living situation: Home/Independent., 11/26/2023 Substance [...] 12/08/23 18:08 Co Signature By: Luis A Pneg MD On 12/09/23 09:33 Modify Signature By: Claudio Bach PA-C On 03/05/24 17:57 Patient Care team information Care Team Personnel Name: PCP, Unknown Member Role: Lifetime Physician(PCP) Care Team Related Persons Name: LONNY COLLINS Address: home [address] [place], [place] [id number]
--- OUTSIDE RECORDS SUMMARY | 2024-09-29 12:14 | XMS_ITS | Continuity of Care Document ---
Author Organization 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 Name Role Phone PCP, Unknown Primary Care Physician Unavailab le Encounter [facility]FIN [id number] Date(s): 11/26/23 - 11/26/23 [facility] [address] [place] [address]- Encounter Diagnosis Unspecified atrial fibrillation(Discharge Diagnosis) - Laceration without foreign body of left thumb without damage to nail, initial encounter(Discharge Diagnosis) - Laceration without foreign body of right thumb without damage to nail, initial encounter(Discharge Diagnosis) - Essential (primary) hypertension(Discharge Diagnosis) - Hyperlipidemia, unspecified(Discharge Diagnosis) - Rheumatoid arthritis, unspecified(Discharge Diagnosis) - Contact with other sharp object(s), not elsewhere classified, initial encounter (Discharge Diagnosis) - Unspecified place in unspecified non-institutional (private) residence as the place of occurrence of the external cause(Discharge Diagnosis) - terminologist (current) use of anticoagulants(Discharge Diagnosis) - Discharge Disposition: Home or Self Care Attending Physician: Scott Lynne MD Allergies, Adverse Reactions, Alerts No Known Allergies Immunizations Given and Recorded Vaccine Date Status Refusal Reason Dipht/pert, acel/tetanus (Tdap) Adult 11/26/23 Giv en Vital Signs Most recent to oldest [Reference Range]: 1 2 Temp Tympanic [36-37.5 deg C] 36.7 deg C (11/26/23 5:25 PM) Heart Rate [51-119 bpm] 62 bpm (11/26/23 7:00 PM) 68 bpm (11/26/23 5:25 PM) Blood Pressure [91-139/51-89 mm Hg] 142/ 58mm Hg *H* (11/26/23 7:00 PM) 150/49mm Hg *H* (11/26/23 5:25 PM) Resp Rate (Monitor) [13-20 Breaths/Min] 18 Breaths/Min (11/26/23 7:00 PM) 18 Breaths/Min (11/26/23 5:25 PM) SPO2 [92 %] 96 % (11/26/23 7:00 PM) 95 % (11/26/23 5:25 PM) Oxygen Method Room air (11/26/23 7:00 PM) Room air (11/26/23 5:25 PM) Height 162.56 cm (11/26/23 5:25 PM) Drug Calc Weight (kg) 66.6 kg (11/26/23 5:25 PM) Weight Method Actual (11/26/23 5:25 PM) BMI 25.203 kg/m2 (11/26/23 5:25 PM) Living Situation Lives with family (11/26/23 5:25 PM) Sensory Deficits None (11/26/23:25 PM) Social History Social History Type Response Smoking Status Never (less than 100 in lifetime) entered on: 11/26/23 Sex Hospital Discharge Instructions Patient Education 11/26/2023 17:58:00 Skin Tear Skin Tear A skin tear is a [...] Follow these instructions at home: Wound care ??? Clean the wound as told by your health care provider. You may be instructed to keep the wound dry for the first few days. If you are told to clean the wound: ??? Wash the wound as told by your health care provider. This may include using mild soap and water, a wound cleanser, or a salt???water (saline) solution. ??? If using soap, rinse the wound with water to remove all soap. ??? Do not rub the wound dry. Pat it gently with a clean towel or let it air-dry. ??? Change any dressings as told by your health care provider. This may include changing the dressing if it gets wet, gets dirty, or starts to smell bad. ??? Wash your hands with soap and water for at least 20 seconds before and after you change your bandage (dressing). If soap and water are not available, use hand plugger man. ??? Leave tape or skin adhesive strips in place. These skin closures may need to stay in place for 2 weeks or longer. If adhesive strip edges start to loosen and curl up, you may trim the loose edges. Do not remove adhesive strips completely unless your health care provider tells you to do that. ??? Check your wound every day for signs of infection. Check for: ??? Redness, swelling, or pain. ??? More fluid or blood. ??? Warmth. ??? Pus or a bad smell. ??? Do not scratch or pick at the wound. ??? Protect the injured area until it has healed. Medicines ??? Take or apply baik-ayn-jvsiwri and prescription medicines only as told by your health care provider. ??? If you were prescribed an antibiotic medicine, take or apply it as told by your health care provider. Do not stop using the antibiotic even if your condition improves. General instructions ??? Keep the dressing dry as told by your health care provider. ??? Do not take baths, swim, use a hot tub, or do anything that puts your wound underwater until your health care provider approves. Ask your health care provider if you may take showers. You may only be allowed to take sponge baths. ??? Keep all follow-up visits. This is important. Contact a health care provider if: ??? You have redness, swelling, or pain around your wound. ??? You have more fluid or blood coming from your wound. ??? Your wound, or the area around your wound, feels warm to the touch. ??? You have pus or a bad smell coming from your wound. Get help right away if: ??? You have a red streak that goes away from the skin tear. ??? You have a fever and chills, and your symptoms suddenly get worse. Summary ??? A skin tear is a wound in which the top layers of skin have peeled off from the deeper skin or tissues underneath. ??? A skin tear is often repaired with tape or skin adhesive strips, and a bandage (dressing) may be applied over the tape or the adhesive strips. ??? Change any dressings as told by your health care provider. ??? Take or apply tfoq-bde-ctfykoq and prescription medicines only as told by your health care provider. ??? Contact a health care provider if you have signs of infection. This information is not intended to replace advice given to you by your health care provider. Make sure you discuss any questions you have with your health care provider. Document Revised: 12/26/2020 Document Reviewed: 12/26/2020 [employer] Patient Education ?? 2022 [employer]. 11/26/2023 17:58:00 Laceration Care, Adult, Kbcs-ir-Advx Laceration Care, Adult A laceration is a [...] better, and may prevent scarring. General tips ??? Keep your wound clean and dry. ??? Do not scratch or pick at your wound. ??? Wash your hands with soap and water for at least 20 seconds before and after touching your wound or changing your bandage (dressing). If you cannot use soap and water, use hand plugger man. ??? Do not usedisinfectants or antiseptics, such as rubbing alcohol, to clean your wound unless told by your doctor. ??? If you were given a bandage, change it at least once a day, or as told by your doctor. You should also change it if it gets wet or dirty. How to take care of your cut If your doctor used stitches or nahid: ??? Keep the wound fully dry for the first 24 hours, or as told by your doctor. After that, you maytake a shower or a bath. Do not soak the wound in water until after the stitches or nahid have been taken out. ??? Clean the wound once a day, or as told by your doctor. To do this: ??? Wash the wound with soap and water. ??? Rinse the wound with water to remove all soap. ??? Pat the wound dry with a clean towel. Do not rub the wound. ??? After you clean the wound, put a thin layer of antibiotic ointment, another ointment, or a nonstick bandage on it as told by your doctor. This will help to: ??? Prevent infection. ??? Keep the bandage from sticking to the wound. ??? Have your stitches or nahid taken out as told by your doctor. If your doctor used skin adhesive strips: ??? Do not get the skin adhesive strips wet. You can take a shower or a bath, but keep the wound dry. ??? If the wound gets wet, pat it dry with a clean towel. Do not rub the wound. ??? Skin adhesive strips fall off on their own. You can trim the strips as the wound heals. Do not take off any strips that are still stuck to the wound unless told by your doctor. The strips will fall off after a while. If your doctor used skin glue: ??? You may take a shower or a bath, but try to keep the wound dry. Do not soak the wound in water. ??? After you take a shower or a bath, pat the wound dry with a clean towel. Do not rub the wound. ??? Do not do any activities that will make you sweat a lot until the skin glue has fallen off. ??? Do not apply liquid, cream, or ointment medicine to your wound while the skin glue is still on. ??? If a bandage is placed over the wound, do not put tape right on top of the skin glue. ??? Do not pick at the glue. The skin glue usually stays on for 5???10 days. Then, it falls off theskin. Follow these instructions at home: Medicines ??? Take tdux-bex-tbnceji and prescription medicines only as told by your doctor. ??? If you were prescribed an antibiotic medicine, take or apply it as told by your doctor. Do not stop using it even if you start to feel better. Managing pain and swelling ??? If told, put ice on the injured area. To do this: ??? Put ice in a plastic bag. ??? Place a towel between your skin and the bag. ??? Leave the ice on for 20 minutes, 2???3 times a day. ??? Take off the ice if your skin turns bright red. This is very important. If you cannot feel pain, heat, or cold, you have a greater risk of damage to the area. ??? Raise the injured area above the level of your heart while you are sitting or lying down. General instructions ??? Avoid any activity that could make your wound reopen. ??? Check your wound every day for signs of infection. Check for: ??? More redness, swelling, or pain. ??? Fluid or blood. ??? Warmth. ??? Pus or a bad smell. ??? Keep all follow-up visits. Contact a doctor if: ??? You got a tetanus shot and you have any of these problems where the needle went in: ??? Swelling. ??? Very bad pain. ??? Redness. ??? Bleeding. ??? A wound that was closed breaks open. ??? You have a fever. ??? You have any of these signs of infection in your wound: ??? More redness, swelling, or pain. ??? Fluid or blood. ??? Warmth. ??? Pus or a bad smell. ??? You see something coming out of the wound, such as wood or glass. ??? Medicine does not make your pain go away. ??? You notice a change in the color of your skin near your wound. ??? You need to change the bandage often. ??? You have a new rash. ??? You lose feeling (have numbness) around the wound. Get help right away if: ??? You have very bad swelling around the wound. ??? Your pain suddenly gets worse and is very bad. ??? You have painful lumps near the wound or on skin anywhere on your body. ??? You have a red streak going away from your wound. ??? The wound is on your hand or foot, and: ??? You cannot move a finger or toe. ??? Your fingers or toes look pale or bluish. Summary ??? A laceration is a cut that may go through all layers of the skin. The cut may also go into the tissue right under the skin. ??? Some cuts heal on their own. Others need to be closed with stitches, nahid, skin adhesive strips, or skin glue. ??? Follow your doctor's instructions for caring for your cut. Proper care of a cut lowers the riskof infection, helps the cut heal better, and may prevent scarring. This information is not intended to replace advice given to you by your health care provider. Make sure you discuss any questions you have with your health care provider. Document Revised: 11/28/2021 Document Reviewed: 11/28/2021 [employer] Patient Education ?? 2022 [employer]. Follow Up Care 11/26/2023 17:11:51 With:Follow up with primary care provider Address:Unknown When:1 to 2 days Physician Emergency department Note * Scott Lynne MD: MODIFY, PERFORM, SIGN, VERIFY Blanca Enciso: MODIFY Event Display: ED Physician Notes Authored Date: Patient: BRINDA COLLINS (EV) Age: 73 years Sex: F : 1950 Associated Diagnoses: None Author: Scott Lynne MD Addendum Teaching-Supervisory Addendum-Brief I participated in the following activities of this patients care: the medical history, the physicalexam, medical decision making. I personally performed: supervision of the patient's care, the medical history, the physical exam. The case was discussed with: the physician banking assistant. Evaluation and management service: I agree with [...] minimal. She is right-hand dominant. Tetanus status isunknown. Patient did not sustain any other injury. [...] 0.25 cm superficial laceration of left thumb. Rightthumb is actively bleeding. Patient has full range [...] the skin avulsion site on the right sideas left bleeding was well-controlled. Bleeding was controlled. [...] Signature By: Blanca Enciso On 11/26/23 18:02 * Yael Lomeli: MODIFY, SIGN, VERIFY, MODIFY, PERFORM Scott Lynne MD: SIGN Event Display: ED Physician Notes Authored Date: [id number] Patient: BRINDA COLLINS (EV) Age: 73 years Sex: F : 1950 Associated Diagnoses: None Author: Yael Lomeli Basic Information Time seen: Provider Initial Contact Time 11/26/2023 17:27. History source: Patient, son. Arrival mode: Private vehicle. History limitation: None. Additional information: Chief Complaint (ST) Chief Complaint ED: Bilat thumb laceration, pt states picked up mandlalita. On eliquis, bleeding currently controlled 11/26/23 17:25. [...] dominant She is currently on Eliquis. Her tetanusstatus is unknown.. Review of Systems Constitutional symptoms: [...] no appendectomy, no cholecystectomy. Social history: Social & Psychosocial Habits Alcohol 11/26/2023 Use: Current Comment: occasional - 11/26/2023 17:27 - Zeinab Villavicencio RN Home/Environment 11/26/2023 Mormonism restrictions/concerns: None Living situation: Home/Independent Substance Abuse [...] normal speech observed. Psychiatric: Cooperative, appropriate mood & affect. Medical Decision Making Differential Diagnosis:: Finger [...] educational materials: Skin Tear, Laceration Care, Adult, Shmg-hs-Qefk. Follow up with: Follow up with primary care provider Within 1 to 2 days. Counseled: Patient, Regarding diagnosis, Regarding diagnostic results, Regarding treatment plan, Regarding prescription, Patient indicated understanding of instructions. Notes: Supervised and seen by Dr. Scott Lynne MD. I pineda Delgado, am scribing for, and in the presence of, JEROD Linder. This chart is electronically signed by myself, pineda Delgado IYael PA personally performed the services described in this documentation, as scribed by Blanca Enciso in my presence, and it is accurate and complete.. Electronically Signed By: Yael Lomeli On 11/26/23 20:22 Co Signature By: Scott Lynne MD On 11/26/23 23:02 Modify Signature By: Yael Lomeil On 11/26/23 19:27 Patient Care team information Care Team Personnel Name: PCP, Unknown Member Role: Lifetime Physician(PCP)
--- OUTSIDE RECORDS SUMMARY | 2024-09-29 12:14 | XMS_ITS | Continuity of Care Document ---
Author Organization [facility] Address [address] [place] [address]- Care Team Providers Care Extrusion Line Operator Name Role Phone PCP, Unknown Primary Care Physician Unavailab le Encounter [facility]_FIN [id number] Date(s): 11/26/23 - 11/26/23 [facility] [address] [place], [place] [address] Discharge Disposition: Home or Self Care Attending [...] family (11/26/23 5:25 PM) Sensory Deficits None (11/26/23 5:25 PM) Social History Social History Type Response [...] and water are not available, use hand gun fertilizer. ??? Leave tape or skin adhesive strips [...] has healed. Medicines ??? Take or apply keyr-cko-wzmcmwh and prescription medicines only as told by [...] health care provider. ??? Take or apply ejvh-oeh-gecszpl and prescription medicines only as told by your health care provider. ??? Contact a health care provider if you have signs of infection. This information is not intended to replace advice given to you by your health care provider. Make sure you discuss any questions you have with your health care provider. Document Revised: 12/26/2020 Document Reviewed: 12/26/2020 [employer] Patient Education ?? 2022 [employer]. 11/26/2023 17:58:00 Laceration Care, Adult, Zrie-iv-Ojrn Laceration Care, Adult A laceration is a [...] cannot use soap and water, use hand gun fertilizer. ??? Do not usedisinfectants or antiseptics, such [...] these instructions at home: Medicines ??? Take stow-uqb-kjezwuc and prescription medicines only as told by [...] provider. Document Revised: 11/28/2021 Document Reviewed: 11/28/2021 [employer] Patient Education ?? 2022 [employer]. Follow Up Care 11/26/2023 17:11:51 With:Follow up [...] The case was discussed with: the physician talent assistant. Evaluation and management service: I agree [...] Event Display: ED Physician Notes Authored Date: [id number] Patient: BRINDA COLLINS (EV) Age: 73 years [...] 17:27 - Zeinab Villavicencio RN Home/Environment 11/26/2023 Anabaptism restrictions/concerns: None Living situation: Home/Independent Substance Abuse [...] educational materials: Skin Tear, Laceration Care, Adult, Lwgu-tu-Uslh. Follow up with: Follow up with primary care provider Within 1 to 2 days. Counseled: Patient, Regarding diagnosis, Regarding diagnostic results, Regarding treatment plan, Regarding prescription, Patient indicated understanding of instructions. Notes: Supervised and seen by Dr. Scott Lynne MD. pineda Soares, am scribing for, and in the presence of, JEROD Linder. This chart is electronically signed by myself, pineda Delgado I, JEROD Linder personally performed the services described in this documentation, as scribed by Blanca Enciso in my presence, and it is accurate and complete.. Electronically Signed By: Yael Lomeli On 11/26/23 20:22 Co Signature By: Scott Lynne MD On 11/26/23 23:02 Modify Signature By: Yael Lomeli On 11/26/23 19:27 Patient Care team information Care Team Personnel Name: PCP, Unknown Member Role: Lifetime Physician(PCP)
--- OUTSIDE RECORDS SUMMARY | 2024-09-29 12:14 | XMS_ITS | Continuity of Care Document ---
Author Organization [facility] Address [address] [place] [address]- Encounter [facility] [id number] Date(s): 12/08/23 - 12/08/23 [facility] [address] [place] [address]- [place] Encounter Diagnosis Non-cardiac chest pain(Discharge Diagnosis) - 12/08/23 Discharge Disposition: Home or Self Care Attending [...] 1.2 thou sand/uL (12/08/23 2:44 PM) ABS Quay [0.0-1.6 thousand/uL] 0.7 thous and/uL (12/08/23 2:44 PM) Albumin [3.5-5.0 gm/dL] 4.3 gm/dL (12/08/23 2:44 PM) Alkphos [40-150 Units/L] 73 Units/L (12/08/23 2:44 PM) ALT [6-55 Units/L] 31 Units/L (12/08/23 2:44 PM) Anion Gap [7-15 mmol/L] 11 mmol/L (12/08/23 2:44 PM) Bili Total [0.2-1.2 mg/dL] 1.1 mg/dL (12/08/23 2:44 PM) BUN [8-25 mg/dL] 14 mg/dL (12/08/23 2:44 PM) BUN/Supervisor [employer] Ratio [8.0-24.0] 17.5 (12/08/23 2:44 PM) Chloride [98-107 mmol/L] 105 mmol/L (12/08/23 2:44 PM) CO2 [23-31 mmol/L] 26 mmol/L (12/08/23 2:44 PM) Creatinine [0.57-1.25 mg/dL] 0.80 mg/dL (12/08/23 2:44 PM) Globulin 2 gm/dL *NA* (12/08/23 2:44 PM) Hct [37.0-47.0 %] 40.6 % (12/08/23 2:44 PM) Hgb [11.5-16.0 gm/dL] 13.8 gm/dL (12/08/23 2:44 PM) MCH [27.0-34.0 pg] 31.4 pg (12/08/23 2:44 PM) MCHC [32.0-37.0 gm/dL] 33.9 gm/dL (12/08/23 2:44 PM) MCV [80.0-100.0 fL] 92.5 fL (12/08/23 2:44 PM) MPV [7.5-11.5 fL] 7.5 fL (12/08/23 2:44 PM) Plt [130-400 thousand/uL] 192 thousand/u L (12/08/23 2:44 PM) Protein, Total [6.0-8.3 gm/dL] 6.7 gm/dL (12/08/23 2:44 PM) RBC [4.00-5.40 million/uL] 4.39 million/ uL (12/08/23 2:44 PM) RDW [11.5-16.0 %] 14.1 % (12/08/23 2:44 PM) Sodium [136-145 mmol/L] 142 mmol/L (12/08/23 2:44 PM) Troponin I [<=0.30 ng/mL] <0.01 ng/mL (12/08/23 2:44 PM) WBC [4.5-13.5 thousand/uL] 8.8 thousand/ uL [...] Ramírez Johnston MD Transcribed by:ONDINA , , S: 12/08/2023 17:38 * * [...] Electronically signed by: Filipe Wilkins MD Transcribed by:Marybel [place]: 12/08/2023 14:47, , S: 12/08/2023 14:47 * * * [...] these instructions at home: Medicines ??? Take rrly-ufh-xzurpwv and prescription medicines only as told by [...] provider. Document Revised: 12/05/2021 Document Reviewed: 12/05/2021 [employer] Patient Education ?? 2022 [employer]. Follow Up Care 12/08/2023 13:49:17 With:Rosa Mendez MD Address: [address] [place] [address]- When:5 to 7 days Comments:Cardiology Physician Emergency department Note * Luis A Peng MD: MODIFY, PERFORM Event Display: ED Physician Notes Authored Date: Patient: ??BRINDA COLLISN ? Age: ??73 years ?Sex: ??F ?: ??1950 ?Active Insurance: ??MEDICARE A Admitting MD: ?Location: ??[facility] ED: ED05: 01 ?PCP: ?? Author: [...] female with history of RA, A-fib on [facility], presenting with transient pain across the right [...] Event Display: ED Physician Notes Authored Date: [id number] Patient: ??BRINDA COLLINS ? Age: ??73 years ?Sex: ??F ?: ??1950 ?Active Insurance: ?? Admitting MD: ?Location: ??[facility] ED: ED05: 01 ?PCP: ??PCP, Unknown [...] ??5 to 7 days?? Address: ?[address] [place] [address]; ; ?? Comments: ??Cardiology ? Problem List/Past Medical History Ongoing CVA (cerebral vascular accident) Hyperlipemia RA (rheumatoid arthritis) Historical No qualifying data Allergies NKA Social History Alcohol Current, 11/26/2023 Home/Environment Sikh restrictions/concerns: None. Living situation: Home/Independent., 11/26/2023 Substance [...] 1 Tab, PO, qDay Electronically Signed By: Claduio Bach PA-C On 12/08/23 18:08 Co Signature By: Luis A Peng MD On 12/09/23 09:33 Modify Signature By: Claudio Bach PA-C On 12/08/23 17:57 Patient Care team information Care Team Related Persons Name: LONNY COLLINS Address: home [address] [facility] [place], [place] [id number]
--- NOTE | 2024-10-06 13:00 | CRLHL7_ITS ---
For Patients: As a result of the Century Cures Act, medical imaging exams and procedure reports are released immediately into your electronic medical record. You may view this report before your referring provider. If you have questions, please contact your health care provider. INDICATION: History of intracranial aneurysms TECHNIQUE: TOF MRA of COW with 3D MIP provided. Compared to prior study from June 15, 2019 FINDINGS: Stable dominant right vertebral artery is the primary supply the basilar artery. Stable small caliber left vertebral artery primarily terminates as a PICA. origin left posterior cerebral artery with patent right posterior communicating artery. Stable 2.5 mm fullness in the anterior aspect of the anterior communicating artery compatible with an aneurysm. Hypoplastic left A1 segment. The remainder of the visualized first and second order intracranial vessels are unremarkable. Specifically, no suspicious narrowing or aneurysmal dilatation. IMPRESSION: 1. 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 Dictated by Juan Bianchi MD @ 10/09/2024 10:47:01 AM (Electronically Signed)
--- NOTE | 2024-10-06 13:45 | CRLHL7_ITS ---
For Patients: As a result of the Century Cures Act, medical imaging exams and procedure reports are released immediately into your electronic medical record. You may view this report before your referring provider. If you have questions, please contact your health care provider. INDICATION: Memory loss. History of aneurysms TECHNIQUE: Noncontrast Sagittal T1,Axial FSE T2, Flair, DWI, post contrast axial and coronal T1W images submitted. Compared to prior study from June 17, 2016. 13 cc of Dotarem gadolinium was administered intravenously. FINDINGS: Since the prior study there has been interval development multiple new chronic infarcts in both cerebellar hemispheres, right more so than left. Stable chronic ischemic changes of the right external capsule. The ventricles, sulci and gyri are of normal size, shape and contour for age. Midline structures are centrally located. No convincing evidence of suspicious intra- or extra-axial fluid collections. Worsening moderate patchy regions of increased T2 signal within the periventricular and subcortical white matter of both cerebral hemispheres. No regions of restricted diffusion or suspicious regions of abnormal parenchymal enhancement. IMPRESSION: 1. No radiographic evidence of acute intracranial abnormalities. 2. Interval development of multiple new chronic infarcts of both cerebellar hemispheres with stable chronic ischemic changes of the right external capsule. 3. Worsening moderate supratentorial white matter changes that are non-specific, but statistically most likely related to chronic small vessel ischemic disease. Dictated by Juan Bianchi MD @ 10/09/2024 10:45:04 AM (Electronically Signed)
== END 2024-10-06 12:58 | disposition home or self-care (01) ==
LOC: MRI 13:00
PROVIDERS: PCP Nurse Practitioner Family; Visit Provider Nurse Practitioner Family
DX: I72.9 Aneurysm of unspecified site (principal); I72.8 Aneurysm of other specified arteries; I63.9 Cerebral infarction, unspecified; I67.82 Cerebral ischemia; R41.3 Other amnesia
CPT/HCPCS: 70544; 70553; A9575

== ENCOUNTER 2025-03-27 15:30 | Outpatient (RCR) | payer MEDICARE, BC, SELFPAY | END 2025-07-03 09:46 | disposition home or self-care (01) | PROVIDERS: PCP Nurse Practitioner Family; Visit Provider Orthopaedic Surgery | DX: Z47.1 Aftercare following joint replacement surgery (principal); Z96.651 Presence of right artificial knee joint; M25.561 Pain in right knee; Z51.89 Encounter for other specified aftercare | CPT/HCPCS: 97110; 97140; 97161 ==

== ENCOUNTER 2025-06-01 13:04 | Outpatient (CLI) | payer MEDICARE, BC, SELFPAY ==
[2025-06-01 22:15] LABS: Alanine Aminotransferase* 55 U/L (4-35); Aspartate Amino Transferase* 40 U/L (12-35); Creatinine* 0.6 mg/dL (0.5-1.5); Estimated Glomerular Filt Rate 95 ml/min
[2025-06-01 22:33] LABS: Hematocrit* 39.7 % (33.0-51.0); Hemoglobin* 13.0 gm/dL (12.0-16.0); Immature Granulocytes Abs Auto 0.07 K/uL (0.00-0.30); Immature Granulocytes Pct Auto 0.8 %; Lymphocytes Absolute Auto 2.12 K/uL (0.90-2.90); Mean Corpuscular HGB Conc 33 gm/dL (32-36); Mean Corpuscular Hemoglobin 30 pg (26-34); Mean Corpuscular Volume 91 fL (80-100); RDW Coefficient of Variation % 13.0 % (11.5-15.5); Red Blood Count* 4.37 m/uL (4.00-5.20); White Blood Count* 8.29 K/uL (4.50-11.00)
[2025-06-01 22:51] LABS: Slide Review Reflex No
== END 2025-06-01 13:05 | disposition home or self-care (01) ==
LOC: NPINS 13:07
PROVIDERS: PCP Nurse Practitioner Family; Visit Provider Nurse Practitioner
DX: M06.9 Rheumatoid arthritis, unspecified (principal)
CPT/HCPCS: 82565; 84450; 84460; 85025

== ENCOUNTER 2025-07-25 11:42 | Outpatient (CLI) | payer MEDICARE, BC, SELFPAY ==
[2025-07-25 21:53] LABS: Hematocrit* 40.7 % (33.0-51.0); Hemoglobin* 13.3 gm/dL (12.0-16.0); Immature Granulocytes Abs Auto 0.03 K/uL (0.00-0.30); Immature Granulocytes Pct Auto 0.4 %; Lymphocytes Absolute Auto 1.71 K/uL (0.90-2.90); Mean Corpuscular HGB Conc 33 gm/dL (32-36); Mean Corpuscular Hemoglobin 30 pg (26-34); Mean Corpuscular Volume 92 fL (80-100); RDW Coefficient of Variation % 13.3 % (11.5-15.5); Red Blood Count* 4.43 m/uL (4.00-5.20); White Blood Count* 8.50 K/uL (4.50-11.00)
[2025-07-25 21:58] LABS: Aspartate Amino Transferase* 37 U/L (12-35); Creatinine* 0.6 mg/dL (0.5-1.5); Estimated Glomerular Filt Rate 95 ml/min
[2025-07-25 22:07] LABS: Slide Review Reflex No
[2025-07-25 22:41] LABS: Erythrocyte SedimentationRate* 4 mm/hr (2-20)
== END 2025-07-25 11:43 | disposition home or self-care (01) ==
LOC: NPINS 11:44
PROVIDERS: PCP Nurse Practitioner Family; Visit Provider Nurse Practitioner
DX: M06.9 Rheumatoid arthritis, unspecified (principal)
CPT/HCPCS: 82565; 84450; 85025; 85651; 86140